=== PATIENT | male | born 1945 | race Caucasian/White ===

== ENCOUNTER 2017-05-08 06:50 | Day surgery (SDC) | payer MEDICARE, BC ==
--- NOTE | 2017-04-24 06:43 | HP ---
PREOPERATIVE HISTORY AND PHYSICAL: DATE OF ADMISSION: 05/08/17 CHIEF COMPLAINT: Right hand numbness and tingling. HISTORY OF PRESENT ILLNESS: Po is a very pleasant 71-year-old man who complains of numbness and tingling in his right hand for the past 4 to 6 months. He does not recall any specific injury. It is gradually getting worse. He rates his symptoms as 5 out of 10. He notices dropping things, trouble pinching and gripping. These symptoms awaken him at night. He is right handed, feels similar symptoms on the left, but not as bad. The patient had a nerve conduction study which was consistent with severe right carpal tunnel syndrome, moderate left carpal tunnel syndrome. He presents for right carpal tunnel release. PAST MEDICAL HISTORY: Significant for: 1. Hypertension. 2. Reflux. 3. Hypercholesterolemia. 4. Arthritis. 5. Diverticulitis. PAST SURGICAL HISTORY: Left knee arthroscopy, hernia repair and ankle surgery. MEDICATIONS: 1. Aspirin 81 mg p.o. daily. 2. Pravachol 80 mg p.o. q.h.s. 3. Escitalopram oxalate 10 mg p.o. daily. 4. Multivitamin 1 p.o. daily. 5. Metamucil 1 tablespoon daily. 6. Nexium 40 mg p.o. daily. 7. Amlodipine besylate 10 mg 1 tablet p.o. daily. 8. Lisinopril 40 mg p.o. daily. 9. Shelbie 60 mg p.o. p.r.n. DRUG ALLERGIES: No known drug allergies. FAMILY HISTORY: Heart disease and stroke. 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 He is a former smoker. Has 4 alcoholic beverages daily. Exercises occasionally. He lives with his . REVIEW OF SYSTEMS: General: Negative. Cephalic: Negative. Cardiovascular: Positive for hypertension and high cholesterol. Respiratory: Positive for seasonal allergies. GI: Positive for history of diverticulitis, currently not active. : Negative. Endocrine: Negative. Skin: Negative. Musculoskeletal: Otherwise negative. Neurologic: Negative. Hematologic: Negative. PHYSICAL EXAMINATION VITAL SIGNS: He is 70.5 inches, weight is 229 pounds. Blood pressure 128/66, pulse 92. HEENT: Exam is unremarkable. His eye movements are concentric. NECK: He has good range of motion of his neck without pain. No masses are palpated. LUNGS: His lungs are clear to auscultation. Good inspiratory effort, no wheezing. CARDIAC: Regular rate and rhythm without murmur. Peripheral vascular: He has palpable pulses. No peripheral edema. EXTREMITIES: He has positive Phalen's test and Tinel sign of the right median nerve at the wrist. Good strength with abduction of his fingers. Decreased strength with thumb abduction. NEUROLOGICAL: He is alert and oriented without focal deficits. IMPRESSION: Right carpal tunnel syndrome. PLAN: Plan is for right carpal tunnel release. The patient will follow up here 10 to 14 days postop. [id number] #: [id number] MTDD
[~2017-05-08 06:50] MED LIST: Buffered Lidocaine 0.9% SYRIN* 5 ML/SYR SYRINGE INTRADERM ONE
[2017-05-08] MEDS ORDERED: Lidocaine 1% INJ* 10 MG/ML 30 ML SDV ONE (07:13)
[2017-05-08] MEDS ORDERED: fentaNYL* 50 MCG/ML 2 ML VIAL (100 MCG VIAL) ONE (08:16)
[2017-05-08] MEDS ORDERED: Midazolam* 1 MG/ML 2 ML VIAL (2 MG) ONE (08:17)
[2017-05-08] MEDS ORDERED: Propofol* 10 MG/ML 20 ML BTL IV PUSH ONE (08:17)
[2017-05-08] MEDS ORDERED: Lidocaine 2% PF * 5 ML VIAL ONE (08:17)
[2017-05-08 09:11] VITALS: BP 136/72
--- NOTE | 2017-05-08 22:06 | OP ---
DATE OF OPERATION: 05/08/17 [facility] DATE OF : 49 SURGEON: Frances Martines MD. CCTV TECHNICIAN: LEEANNE Hamm. ANESTHESIOLOGIST: Faustino Beebe DO ANESTHESIA: Local MAC. PRE-OP DIAGNOSIS: Right carpal tunnel syndrome. POST-OP DIAGNOSIS: Right carpal tunnel syndrome. OPERATIVE PROCEDURE: Right carpal tunnel release. ESTIMATED BLOOD LOSS: Zero. TOURNIQUET TIME: Five minutes. INDICATION FOR PROCEDURE: Po is a 71-year-man with numbness and tingling in the median nerve distribution of his right hand. He presents for right carpal tunnel release. DESCRIPTION OF PROCEDURE: The patient was brought to the operating room, was given a sedation anesthetic and a local infiltration of 10 cc of 1% plain lidocaine in the palm of his right hand. The skin of his right hand and forearm was prepped and draped in the usual sterile fashion. The hand and forearm were exsanguinated and the tourniquet elevated to 250 mmHg. A longitudinal incision was made in the palm in line with the ring finger, dissected through the subcutaneous tissue down to the transverse carpal ligament. The ligament was divided sharply with a knife and then more proximally with the scissors. The nerve was dissected free from the surrounding tissue and there was an area of moderate compression at the mid portion of the ligament. The wound was irrigated and the skin edges reapproximated with 4- 0 nylon suture. The wound was dressed with Xeroform, 4x4 , Webril and an KRISTINE wrap. The patient tolerated the procedure well and was brought to the recovery room in good condition. [id number]/[id number] #: [id number] DEMARIO
== END 2017-05-08 09:08 | disposition home or self-care (01) ==
LOC: OREAST 06:50
PROVIDERS: ATTEND Orthopaedic Surgery
DX: G56.01 Carpal tunnel syndrome, right upper limb (principal); I10 Essential (primary) hypertension; E78.00 Pure hypercholesterolemia, unspecified; Z87.891 Personal history of nicotine dependence
CPT/HCPCS: J2001; J2250; J2704; J3010

== ENCOUNTER 2018-04-19 16:08 | Emergency (ER) | payer MEDICARE, BC ==
--- OUTSIDE RECORDS SUMMARY | 2018-04-19 16:26 | XMS REPORT ---
:1945 External Reference #:[id number] Author Organization [facility] Address [facility] [place] [address] [place] [address] Phone [phone] Care Team Providers Name Role Phone Mari Mcneal MD Primary Care Physician Unavailable Payers Type Date Identification Numbers Payment Provider Subscriber Medicare Primary Policy Number: [id number] Medicare Po Flores PayID: [id number] [address] [place] [address] Medigap Part B Effective: 2012 Policy Number: Medicare Po Flores [id number] Expires: 2018 PayID: [id number] [address] [place] [address] Medigap Part B Effective: 2012 Policy Number: Facets Po Flores [id number] PayID: [id number] [address] [address] [facility] Effective: 2010 Policy Number: [facility] [id number] Expires: 2012 Group Number: [id number] PO Box Group Name: Claudinejimmy GoldsmithHECTOR martinez [id number] PayID: [id number] Problems Date Description Provider Status Onset: 06/03/2010 Benign essential hypertension Mari Mcneal M.D. Active Onset: 06/03/2010 Gastroesophageal reflux disease Mari Mcneal M.D. Active Onset: 05/10/2014 Liver enzymes abnormal Mari Mcneal M.D. Active Onset: 06/11/2015 Essential hypertension Mari Mcneal M.D. Active Onset: 03/05/2018 Localized, primary osteoarthritis Brandie Jacobo M.D. 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 nostril twice daily Aspirin 12/19/ Active Tablets 81mg 1 by 2016 mouth Cotton, every M.D. day Pravachol 10/21/ Active Tablets 80mg 90tab Take 1 2013 s Tablet Cotton, By Mouth M.D. AT Bedtime Escitalopram 04/19/ Active Tablets 10mg 90tab Take 1 F41.9 Oxalate 2011 s Tablet Cotton, By Mouth M.D. Every Day Multivitamins 03/06/ Active Capsules QS 1 2010 capsule Cotton, brooke;y M.D. Metamucil 03/06/ Active Powder 1 tbsp 2010 daily Cotton, M.D. Nexium 01/01/ Active Capsules DR 40mg 90cap take one K21.9 2009 s capsule Cotton, by mouth M.D. once daily Amlodipine 01/01/ Active Tablets 10mg 90tab Take 1 Mari Besylate 2009 s Tablet Cotton, By Mouth M.D. Every Day Lisinopril 01/01/ Active Tablets 40mg 90tab Take 1 Mari 2009 s Tablet Cotton, By Mouth M.D. Every Day Meloxicam 03/05/ Hx Tablets 15mg 30tab 1 by M25.462 Brandie 2017 - s mouth Donnell, 04/08/ every M.D. 2018 day Tramadol 04/23/ Hx Tablets 37.5-325m 10tab 1 Frances Hydrochloride/Lito 2017 - g s tablets Martines, taminophen 06/03/ every 6 M.D. 2017 hours as needed pain Meclizine HCL 11/27/ Hx Tablets 25mg 30tab 1 tablet 386.11 Arlyn 2014 - s every 8 Varn, N.P. 06/11/ hours as 2015 needed for vertigo Clotrimazole/Beta 11/27/ Hx Cream 1-0.05% 15gm apply 2 110.5 Arlyn methasone 2014 - - 3 Varn, N.P. Dipropionate 06/20/ times 2016 daily as needed Mupirocin 11/27/ Hx Ointment 2% 22gm apply 110.5 Arlyn 2015 - once Varn, N.P. 06/20/ daily to 2016 rash Cyclobenzaprine 07/11/ Hx Tablets 10mg 30tab take 1 M54.89 Mari HCL 2013 - s tablet Cotton, 12/19/ by mouth M.D. 2016 three times daily as needed for spasm Naproxen 07/11/ Hx Tablets 500mg 30tab take 1 M54.89 Mari 2013 - s tablet Cotton, 12/19/ by mouth M.D. 2016 two times daily with food as needed for pain, avoid taking it daily Trazodone HCL 09/16/ Hx Tablets 50mg 30tab 1 tablet Mari 2013 - s once Cotton, 12/19/ daily at M.D. 2017 bedtime as needed Triamcinolone 10/18/ Hx Cream 0.5% 15gm apply Mari Acetonide 2012 - thin Cotton, 06/20/ film M.D. 2016 twice daily as needed Trazodone HCL 03/05/ Hx Tablets 50mg 30tab /2-1 300.00 Mari 2011 tablet Elliott, 10/18/ once M.D. 2012 daily at bedtime Fluticasone 10/13/ Hx Suspension 50mcg/Act 1unit 2 sprays 388.30 Mari Propionate 2011 - each Elliott, 11/12/ nostril M.D. 2011 daily Tramadol HCL 08/05/ Hx Tablets 50mg 40tab 1-2 724.5 Mari 2011 tablets Elliott, 11/09/ every 6 M.D. 2015 hours as needed Fiber 7 03/06/ Hx Powder 1 tsp Mari 2010 - daily Elliott, 06/14/ M.D. 2012 Ketoconazole 03/06/ Hx Cream 2% 30gm apply 782.1 Mari 2010 - thin Elliott, 06/20/ film M.D. 2015 twice daily Aspirin 01/01/ Hx Chewtabs 81mg 1 tablet [facility] 2009 - once Elliott, 04/19/ daily M.D. 2011 Lisinopril 12/27/ Hx Tablets 5mg 30tab 1 tablet Lamar 2009 once Sarai, 01/01/ daily M.D. 2009 Amlodipine 12/27/ Hx Tablets 2.5mg 90tab 1 tablet Lamar Besylate 2009 once Sarai, 01/01/ daily M.D. 2009 Prevacid 12/27/ Hx Capsules DR 30mg 60cap 1 tablet 530.81 Lamar 2009 once Sarai, 01/01/ daily M.D. 2009 Fexofenadine HCL 12/27/ Hx Tablets 60mg 180ta Take One Mari2009 Tablet Elliott, 10/13/ By Mouth M.D. 2011 Twice Daily as Needed Buspirone HCL 12/27/ Hx Tablets 15mg 60tab Take One Mari 2009 - Tablet Elliott, 04/19/ By Mouth M.D. 2011 Twice A Day Pravastatin 12/27/ Hx Tablets 80mg 90tab Take One Mari Sodium 2009 Tablet Elliott, 10/21/ By Mouth M.D. 2013 AT Bedtime. Shelbie Allergy / Hx Tablets 60mg bid prn Unknown 0000 - po 2017 Augmentin / Hx Tablets 875-125mg one by Unknown 0000 - mouth 12/19/ every 12 2017 hours for 7 days Magnesium Citrate / Hx Unknown 0000 - 2017 Medications Administered in Office Medication Date Status Form Strength Qnty SIG Indications Ordering Provider Depomedrol Administered Injection Brandie 40MG 018 Charlie Jacobo Depomedrol Administered Injection Brandie 40MG 018 Charlie Jacobo Immunizations CPT Code Status Date Vaccine Lot # [id number] Given 04/19/2018 Influenza Virus Vaccine, Quadrivalent, Split, [id number] Preservative Free 71326 Given 07/16/2017 Pneumonia Vaccine [id number] 63151 Given 05/18/2017 Influenza Virus Vaccine, Quadrivalent, Split, [id number] Preservative Free 25591 Given 05/07/2016 Influenza Virus Vaccine, Quadrivalent, Split [id number] Virus, Im Use 66087 Given 05/11/2015 Influenza Virus Vaccine, Quadrivalent, Split, [id number] Preservative Free 58306 Given 11/09/2014 Pneumococcal Conjugate Vaccine 13 Valent For [id number] Intramuscular Use 05041 Given 05/10/2014 Influenza Virus Vaccine, Quadrivalent, Split, [id number] Preservative Free [id number] Given 04/19/2012 Fluzone Vaccine [id number] 40263 Given 06/03/2010 Pneumonia Vaccine 31715 Given 04/03/2009 Zoster (Zostavax) 26345 Given 12/21/2006 Tdap - Tetanus/Diptheria/Acellular Pertussis [id number] 96349 Given 12/21/2006 Tdap - Tetanus/Diptheria/Acellular Pertussis 42336 Given 12/21/2006 Tdap - Tetanus/Diptheria/Acellular Pertussis 09872 Given 06/17/2006 Influenza Virus 3Yrs & Over Vital Signs Date Vital Result Comment 04/19/2018 Height 70 inches 5'10" Weight 223.00 lb Heart Rate 79 /min BP Systolic 108 mmHg BP Diastolic 59 mmHg BP Systolic Sitting 120 mmHg BP Diastolic Sitting 60 mmHg BP Systolic Standing 118 mmHg BP Diastolic Standing 60 mmHg BP Systolic Lying Down 118 mmHg BP Diastolic Lying Down 64 mmHg O2 % BldC Oximetry 97 % BMI (Body Mass Index) 32.0 kg/m2 04/09/2018 Height 70 inches 5'10" Weight 227.00 lb Heart Rate 74 /min Respiratory Rate 16 /min Pain Level 2 BMI (Body Mass Index) 32.6 kg/m2 03/05/2018 Height 70 inches 5'10" Weight 227.00 lb BP Systolic 120 mmHg BP Diastolic 61 mmHg Respiratory Rate 16 /min Pain Level 7 BMI (Body Mass Index) 32.6 kg/m2 01/14/2018 Weight 227.00 lb Heart Rate 92 /min BP Systolic 128 mmHg BP Diastolic 72 mmHg Body Temperature 97.0 F O2 % BldC Oximetry 96 % 07/16/2017 Height 70.5 inches 5'10.50" Weight 232.75 lb Heart Rate 94 /min BP Systolic 120 mmHg BP Diastolic 60 mmHg Body Temperature 95.9 F O2 % BldC Oximetry 93 % BMI (Body Mass Index) 32.9 kg/m2 07/15/2017 Height 70.5 inches 5'10.50" Weight 229.00 lb BP Systolic 124 mmHg BP Diastolic 60 mmHg Respiratory Rate 18 /min Body Temperature 96.6 F Pain Level 0 BMI (Body Mass Index) 32.4 kg/m2 06/10/2017 Height 70.5 inches 5'10.50" Weight 229.00 lb Heart Rate 86 /min BP Systolic 136 mmHg BP Diastolic 64 mmHg Body Temperature 96.9 F BMI (Body Mass Index) 32.4 kg/m2 05/18/2017 Height 70.5 inches 5'10.50" Weight 229.00 lb Heart Rate 68 /min BP Systolic 134 mmHg BP Diastolic 68 mmHg Body Temperature 96.8 F Pain Level 2 BMI (Body Mass Index) 32.4 kg/m2 04/23/2017 Height 70.5 inches 5'10.50" Weight 229.00 lb Heart Rate 92 /min BP Systolic 128 mmHg BP Diastolic 66 mmHg Respiratory Rate 20 /min Body Temperature 97.4 F Pain Level 0 BMI (Body Mass Index) 32.4 kg/m2 03/30/2017 Height 70.5 inches 5'10.50" Weight 221.00 lb BP Systolic 144 mmHg BP Diastolic 68 mmHg Body Temperature 97.4 F BMI (Body Mass Index) 31.3 kg/m2 03/12/2017 Height 70.5 inches 5'10.50" Weight 231.00 lb BP Systolic 121 mmHg BP Diastolic 62 mmHg Respiratory Rate 14 /min Pain Level 4 BMI (Body Mass Index) 32.7 kg/m2 03/04/2017 Height 70.5 inches 5'10.50" Weight 231.00 lb Heart Rate 81 /min BP Systolic 127 mmHg BP Diastolic 60 mmHg Body Temperature 97.1 F BMI (Body Mass Index) 32.7 kg/m2 12/19/2016 Weight 232.00 lb Heart Rate 88 /min BP Systolic 148 mmHg BP Diastolic 66 mmHg Body Temperature 97.2 F O2 % BldC Oximetry 97 % 06/20/2016 Height 69.5 inches 5'9.50" Weight 234.00 lb Heart Rate 78 /min BP Systolic 128 mmHg BP Diastolic 74 mmHg Body Temperature 98.1 F O2 % BldC Oximetry 97 % BMI (Body Mass Index) 34.1 kg/m2 01/22/2016 Weight 222.00 lb Heart Rate 94 /min BP Systolic Sitting 128 mmHg BP Diastolic Sitting 84 mmHg Respiratory Rate 15 /min Body Temperature 98.0 F O2 % BldC Oximetry 98 % 12/10/2015 Weight 231.00 lb Heart Rate 85 /min BP Systolic 138 mmHg BP Diastolic 72 mmHg BP Systolic Sitting 113 mmHg BP Diastolic Sitting 63 mmHg Body Temperature 97.2 F O2 % BldC Oximetry 97 % 06/11/2015 Height 70 inches 5'10" Weight 230.00 lb Heart Rate 88 /min BP Systolic Sitting 126 mmHg BP Diastolic Sitting 74 mmHg Respiratory Rate 15 /min Body Temperature 98.7 F O2 % BldC Oximetry 98 % BMI (Body Mass Index) 33.0 kg/m2 11/27/2014 Weight 232.00 lb Heart Rate 99 /min BP Systolic Sitting 132 mmHg BP Diastolic Sitting 70 mmHg BP Systolic Standing 134 mmHg BP Diastolic Standing 63 mmHg BP Systolic Lying Down 108 mmHg BP Diastolic Lying Down 59 mmHg Body Temperature 98.1 F 11/09/2014 Weight 229.00 lb Heart Rate 90 /min BP Systolic Sitting 138 mmHg BP Diastolic Sitting 66 mmHg Body Temperature 96.5 F 09/20/2014 Height 70 inches 5'10" Weight 224.00 lb Heart Rate 90 /min BP Systolic 146 mmHg BP Diastolic 71 mmHg BMI (Body Mass Index) 32.1 kg/m2 07/11/2014 Height 70 inches 5'10" Weight 227.50 lb Heart Rate 88 /min BP Systolic Sitting 132 mmHg BP Diastolic Sitting 60 mmHg Body Temperature 97.9 F O2 % BldC Oximetry 95 % BMI (Body Mass Index) 32.6 kg/m2 05/10/2014 Height 70 inches 5'10" Weight 223.00 lb Heart Rate 82 /min BP Systolic Sitting 152 mmHg BP Diastolic Sitting 68 mmHg Body Temperature 97.2 F BMI (Body Mass Index) 32.0 kg/m2 09/16/2013 Weight 224.00 lb Heart Rate 84 /min BP Systolic Sitting 138 mmHg BP Diastolic Sitting 84 mmHg 06/14/2013 Weight 223.00 lb Heart Rate 86 /min BP Systolic Sitting 136 mmHg BP Diastolic Sitting 62 mmHg 03/15/2013 Height 70 inches 5'10" Weight 221.00 lb Heart Rate 84 /min BP Systolic Sitting 138 mmHg BP Diastolic Sitting 72 mmHg BMI (Body Mass Index) 31.7 kg/m2 10/18/2012 Height 70 inches 5'10" Weight 207.00 lb Heart Rate 86 /min BP Systolic Sitting 120 mmHg BP Diastolic Sitting 68 mmHg BMI (Body Mass Index) 29.7 kg/m2 05/20/2012 Height 70 inches 5'10" Weight 214.00 lb Heart Rate 80 /min BP Systolic Sitting 122 mmHg BP Diastolic Sitting 64 mmHg BMI (Body Mass Index) 30.7 kg/m2 04/19/2012 Height 70 inches 5'10" Weight 210.00 lb Heart Rate 76 /min BP Systolic Sitting 124 mmHg BP Diastolic Sitting 72 mmHg BMI (Body Mass Index) 30.1 kg/m2 03/09/2012 Height 70 inches 5'10" Weight 210.00 lb Heart Rate 80 /min BP Systolic Sitting 130 mmHg BP Diastolic Sitting 80 mmHg BMI (Body Mass Index) 30.1 kg/m2 03/05/2012 Height 70 inches 5'10" Weight 214.00 lb Heart Rate 78 /min BP Systolic Sitting 138 mmHg BP Diastolic Sitting 80 mmHg BMI (Body Mass Index) 30.7 kg/m2 10/14/2011 Height 70 inches 5'10" Weight 216.25 lb Heart Rate 76 /min BP Systolic Sitting 130 mmHg BP Diastolic Sitting 70 mmHg Body Temperature 98.6 F BMI (Body Mass Index) 31.0 kg/m2 09/08/2011 Height 70 inches 5'10" Weight 220.00 lb Heart Rate 80 /min BP Systolic Sitting 133 mmHg BP Diastolic Sitting 68 mmHg BMI (Body Mass Index) 31.6 kg/m2 08/05/2011 Height 70 inches 5'10" Weight 218.00 lb Heart Rate 104 /min BP Systolic Sitting 168 mmHg BP Diastolic Sitting 64 mmHg BMI (Body Mass Index) 31.3 kg/m2 07/04/2011 Height 70 inches 5'10" Weight 219.00 lb Heart Rate 84 /min BP Systolic Sitting 140 mmHg BP Diastolic Sitting 68 mmHg BMI (Body Mass Index) 31.4 kg/m2 03/06/2011 Height 70 inches 5'10" Weight 213.00 lb Heart Rate 78 /min BP Systolic Sitting 136 mmHg BP Diastolic Sitting 82 mmHg BMI (Body Mass Index) 30.6 kg/m2 02/11/2011 Height 70 inches 5'10" Weight 210.00 lb Heart Rate 74 /min BP Systolic Sitting 132 mmHg BP Diastolic Sitting 84 mmHg BMI (Body Mass Index) 30.1 kg/m2 08/29/2010 Weight 217.00 lb Heart Rate 86 /min BP Systolic 128 mmHg BP Diastolic 70 mmHg 07/01/2010 Weight 213.00 lb Heart Rate 90 /min BP Systolic 146 mmHg BP Diastolic 82 mmHg 06/03/2010 Weight 215.00 lb Heart Rate 88 /min BP Systolic 142 mmHg BP Diastolic 70 mmHg 01/01/2010 Weight 210.25 lb Heart Rate 72 /min BP Systolic 130 mmHg BP Diastolic 80 mmHg Results Test Date Test Result H/L Range Note Comp Metabolic Panel 01/11/2018 Sodium 137 mmol/L Low 139-145 Potassium 4.1 mmol/L 3.5-5.0 Chloride 102 mmol/L 101-111 Co2 Carbon Dioxide 26 mmol/L 22-32 Anion Gap 9 mmol/L 2-11 Glucose 112 mg/dL High 70-100 Blood Urea Nitrogen 15 mg/dL 6-24 Creatinine 1.09 mg/dL 0.67-1.17 BUN/Creatinine Ratio 13.8 8-20 Calcium 9.5 mg/dL 8.6-10.3 Total Protein 7.2 g/dL 6.4-8.9 Albumin 4.5 g/dL 3.2-5.2 Globulin 2.7 g/dL 2-4 Albumin/Globulin Ratio 1.7 1-3 Total Bilirubin 0.90 mg/dL 0.2-1.0 Alkaline Phosphatase 92 U/L 34-104 Alt 62 U/L High 7-52 Ast 38 U/L 13-39 Egfr Non- 66.9 >60 Egfr 86.0 >60 1 Lipid Profile (Trig/Chol/HDL) 07/13/2017 Triglycerides 209 mg/dL 2 Cholesterol 234 mg/dL 3 HDL Cholesterol 57.9 mg/dL 4 LDL Cholesterol 134 mg/dL 5 Comp Metabolic Panel 07/13/2017 Sodium 140 mmol/L 133-145 Potassium 4.7 mmol/L 3.5-5.0 Chloride 103 mmol/L 101-111 Co2 Carbon Dioxide 30 mmol/L 22-32 Anion Gap 7 mmol/L 2-11 Glucose 104 mg/dL High 70-100 Blood Urea Nitrogen 15 mg/dL 6-24 Creatinine 1.02 mg/dL 0.67-1.17 BUN/Creatinine Ratio 14.7 8-20 Calcium 9.7 mg/dL 8.6-10.3 Total Protein 7.1 g/dL 6.4-8.9 Albumin 4.6 g/dL 3.2-5.2 Globulin 2.5 g/dL 2-4 Albumin/Globulin Ratio 1.8 1-3 Total Bilirubin 0.60 mg/dL 0.2-1.0 Alkaline Phosphatase 117 U/L High 34-104 Alt 111 U/L High 7-52 Ast 70 U/L High 13-39 Egfr Non- 72.4 >60 Egfr 93.1 >60 6 Comp Metabolic Panel 12/12/2016 Sodium 137 mmol/L 133-145 Potassium 4.5 mmol/L 3.5-5.0 Chloride 102 mmol/L 101-111 Co2 Carbon Dioxide 29 mmol/L 22-32 Anion Gap 6 mmol/L 2-11 Glucose 114 mg/dL High 70-100 Blood Urea Nitrogen 15 mg/dL 6-24 Creatinine 1.06 mg/dL 0.67-1.17 BUN/Creatinine Ratio 14.2 8-20 Calcium 9.2 mg/dL 8.6-10.3 Total Protein 7.1 g/dL 6.4-8.9 Albumin 4.2 g/dL 3.2-5.2 Globulin 2.9 g/dL 2-4 Albumin/Globulin Ratio 1.4 1-3 Total Bilirubin 0.60 mg/dL 0.2-1.0 Alkaline Phosphatase 104 U/L 34-104 Alt 60 U/L High 7-52 Ast 34 U/L 13-39 Egfr Non- 69.3 >60 Egfr 89.1 >60 7 Laboratory test finding 12/12/2016 Ferritin 166.6 ng/mL 24-336 8 PSA Diagnostic 0.476 ng/mL 0-4.000 9 Lipid Profile (Trig/Chol/HDL) 06/18/2016 Triglycerides 208 mg/dL 10, 11 Cholesterol 189 mg/dL 10, 12 HDL Cholesterol 51.7 mg/dL 10, 13 LDL Cholesterol 96 mg/dL 10, 14 Comp Metabolic Panel 06/18/2016 Sodium 137 mmol/L 133-145 10 Potassium 4.1 mmol/L 3.5-5.0 10 Chloride 102 mmol/L 101-111 10 Co2 Carbon Dioxide 28 mmol/L 22-32 10 Anion Gap 7 mmol/L 2-11 10 Glucose 97 mg/dL 70-100 10 Blood Urea Nitrogen 11 mg/dL 6-24 10 Creatinine 0.96 mg/dL 0.67-1.17 10 BUN/Creatinine Ratio 11.5 8-20 10 Calcium 9.0 mg/dL 8.6-10.3 10 Total Protein 7.1 g/dL 6.4-8.9 10 Albumin 4.1 g/dL 3.2-5.2 10 Globulin 3.0 g/dL 2-4 10 Albumin/Globulin Ratio 1.4 1-3 10 Total Bilirubin 0.60 mg/dL 0.2-1.0 10 Alkaline Phosphatase 93 U/L 34-104 10 Alt 84 U/L High 7-52 10 Ast 50 U/L High 13-39 10 Egfr Non- 77.9 >60 10 Egfr 100.2 >60 10, 15 Urinalysis Profile 02/01/2016 Urine Color Yellow Urine Appearance Clear Urine Specific [place] 1.013 1.010-1.030 Urine pH 7.0 5-9 Urine Urobilinogen Negative Negative Urine Ketones Negative Negative Urine Protein Negative Negative Urine Leukocytes Negative Negative Urine Blood Negative Negative Urine Nitrite Negative Negative Urine Bilirubin Negative Negative Urine Glucose Negative Negative Laboratory test finding 12/03/2015 Alt (SGPT) 54 U/L High 7-52 Ast (Sgot) 32 U/L 13-39 Magnesium 2.0 mg/dL 1.9-2.7 Vitamin B12 518 pg/mL 180-914 16 Lipid Profile (Trig/Chol/HDL) 06/06/2015 Triglycerides 209 mg/dL 17, 18 Cholesterol 182 mg/dL 17, 19 HDL Cholesterol 55.2 mg/dL 17, 20 LDL Cholesterol 85 mg/dL 17, 21 Comp Metabolic Panel 06/06/2015 Sodium 136 mmol/L 133-145 17 Potassium 4.3 mmol/L 3.5-5.0 17 Chloride 101 mmol/L 101-111 17 Co2 Carbon Dioxide 27 mmol/L 22-32 17 Anion Gap 8 mmol/L 2-11 17 Glucose 93 mg/dL 70-100 17 Blood Urea Nitrogen 13 mg/dL 6-24 17 Creatinine 1.01 mg/dL 0.67-1.17 17 BUN/Creatinine Ratio 12.9 8-20 17 Calcium 9.3 mg/dL 8.6-10.3 17 Total Protein 7.3 g/dL 6.4-8.9 17 Albumin 4.5 g/dL 3.2-5.2 17 Globulin 2.8 g/dL 2-4 17 Albumin/Globulin Ratio 1.6 1-3 17 Total Bilirubin 0.70 mg/dL 0.2-1.0 17 Alkaline Phosphatase 94 U/L 34-104 17 Alt 71 U/L High 7-52 17 Ast 43 U/L High 13-39 17 Egfr Non- 73.7 >60 17 Egfr 94.8 >60 17, 22 Laboratory test finding 06/06/2015 Ferritin 165.3 ng/mL 24-336 17, 23 Iron & Iron Binding Capacity 06/06/2015 Iron 207 g/dL 50-212 17 Unsaturated Iron Binding 111 g/dL 17 Total Iron Binding Capacity 318 g/dL 250-450 17 % Iron Saturation 65 % High 15-55 17 Comp Metabolic Panel 05/29/2014 Sodium 136 mmol/L 133-145 24 Potassium 4.1 mmol/L 3.7-5.6 24 Chloride 103 mmol/L 101-111 24 Co2 Carbon Dioxide 26 mmol/L 22-32 24 Anion Gap 7 mmol/L 2-11 24 Glucose 100 mg/dL 70-100 24 Blood Urea Nitrogen 11 mg/dL 6-24 24 Creatinine 0.86 mg/dL 0.67-1.17 24 BUN/Creatinine Ratio 12.8 8-20 24 Calcium 9.2 mg/dL 8.6-10.3 24 Total Protein 7.4 g/dL 6.4-8.9 24 Albumin 4.2 g/dL 3.2-5.2 24 Globulin 3.2 g/dL 2-4 24 Albumin/Globulin Ratio 1.3 1-3 24 Total Bilirubin 0.70 mg/dL 0.2-1.0 24 Alkaline Phosphatase 94 U/L 34-104 24 Alt 57 U/L High 7-52 24 Ast 39 U/L 13-39 24 Egfr Non- 89.0 >60 24 Egfr 114.4 >60 24, 25 Lipid Profile (Trig/Chol/HDL) 05/29/2014 Triglycerides 135 mg/dL 24, 26 Cholesterol 172 mg/dL 24, 27 HDL Cholesterol 52.5 mg/dL 24, 28 LDL Cholesterol 93 mg/dL 24, 29 Liver Function Panel 09/13/2013 Total Protein 7.1 g/dL 6.4-8.9 Albumin 4.3 g/dL 3.2-5.2 Globulin 2.8 g/dL 2-4 Albumin/Globulin Ratio 1.5 1-3 Total Bilirubin 0.50 mg/dL 0.2-1.0 Direct Bilirubin 0.10 mg/dL 0.03-0.18 Indirect Bilirubin 0.4 mg/dL 0.3-1.0 Alkaline Phosphatase 106 U/L High 34-104 Alt 51 U/L 7-52 Ast 31 U/L 13-39 Laboratory test finding 09/13/2013 Erythrocyte Sed Rate 32 mm/Hr 0-40 CBC With Manual Diff 09/13/2013 White Blood Count 7.4 10^3/uL 4.8-10.8 Red Blood Count 4.54 10^6/uL 4.0-5.4 Hemoglobin 14.8 g/dL 14.0-18.0 Hematocrit 42 % 42-52 Mean Corpuscular Volume 93 fL 80-94 Mean Corpuscular Hemoglobin 33 pg High 27-31 Mean Corpuscular HGB Conc 35 g/dL 31-36 Red Cell Distribution Width 13 % 10.5-15 Platelet Count 295 10^3/uL 150-450 Mean Platelet Volume 7 um3 Low 7.4-10.4 Abs Neutrophils 4.4 10^3/uL 1.5-7.7 Abs Lymphocytes 1.9 10^3/uL 1.0-4.8 Abs Monocytes 0.9 10^3/uL High 0-0.8 Abs Eosinophils 0.1 10^3/uL 0-0.6 Abs Basophils 0 10^3/uL 0-0.2 Abs Nucleated RBC 0.01 10^3/uL Neutrophil % 61 % 38-83 Band % 1 % 0-8 Lymphocytes % 28 % 25-47 Monocytes % 9 % 0-13 Reactive Lymph % 1 % 0-6 RBC Morphology Normal Normal Laboratory test finding 06/06/2013 Vitamin B12 504 pg/mL 180-914 30 CBC Auto Diff 06/06/2013 White Blood Count 8.2 10^3/uL 4.8-10.8 Red Blood Count 4.45 10^6/uL 4.0-5.4 Hemoglobin 13.9 g/dL Low 14.0-18.0 Hematocrit 42 % 42-52 Mean Corpuscular Volume 95 fL High 80-94 Mean Corpuscular Hemoglobin 31 pg 27-31 Mean Corpuscular HGB Conc 33 g/dL 31-36 Red Cell Distribution Width 13 % 10.5-15 Platelet Count 269 10^3/uL 150-450 Mean Platelet Volume 7 um3 Low 7.4-10.4 Abs Neutrophils 4.8 10^3/uL 1.5-7.7 Abs Lymphocytes 2.2 10^3/uL 1.0-4.8 Abs Monocytes 1.0 10^3/uL High 0-0.8 Abs Eosinophils 0.2 10^3/uL 0-0.6 Abs Basophils 0 10^3/uL 0-0.2 Abs Nucleated RBC 0.01 10^3/uL Granulocyte % 58.5 % 38-83 Lymphocyte % 26.7 % 25-47 Monocyte % 12.2 % High 1-9 Eosinophil % 2.1 % 0-6 Basophil % 0.5 % 0-2 Nucleated Red Blood Cells % 0.1 Laboratory test finding 06/06/2013 GGTP 174 U/L High 7-50 31 Comp Metabolic Panel 06/06/2013 Sodium 136 mmol/L 133-145 Potassium 4.9 mmol/L 3.5-5.0 Chloride 99 mmol/L Low 101-111 Co2 Carbon Dioxide 30.0 mmol/L 22-32 Anion Gap 7.0 mmol/L 2-11 Glucose 105 mg/dL High 70-100 Blood Urea Nitrogen 11 mg/dL 6-24 Creatinine 0.90 mg/dL 0.50-1.40 BUN/Creatinine Ratio 12.2 8-20 Calcium 9.7 mg/dL 8.1-9.9 Total Protein 7.5 g/dL 6.2-8.1 Albumin 4.2 g/dL 3.2-5.2 Globulin 3.3 g/dL 2-4 Albumin/Globulin Ratio 1.3 1-3 Total Bilirubin 0.8 mg/dL 0.4-1.5 Alkaline Phosphatase 102 U/L 30-110 Alt 89 U/L High 14-54 Ast 47 U/L High 12-42 Egfr Non- 84.7 >60 Egfr 108.9 >60 32 Comp Metabolic Panel 01/25/2013 Sodium 138 mmol/L 133-145 Potassium 4.5 mmol/L 3.5-5.0 Chloride 102 mmol/L 101-111 Co2 Carbon Dioxide 27.0 mmol/L 22-32 Anion Gap 9.0 mmol/L 2-11 Glucose 92 mg/dL 70-100 Blood Urea Nitrogen 12 mg/dL 6-24 Creatinine 1.10 mg/dL 0.50-1.40 BUN/Creatinine Ratio 10.9 8-20 Calcium 9.5 mg/dL 8.1-9.9 Total Protein 6.6 g/dL 6.2-8.1 Albumin 4.0 g/dL 3.2-5.2 Globulin 2.6 g/dL 2-4 Albumin/Globulin Ratio 1.5 1-3 Total Bilirubin 1.0 mg/dL 0.4-1.5 Alkaline Phosphatase 91 U/L 30-110 Alt 56 U/L High 14-54 Ast 38 U/L 12-42 Egfr Non- 67.2 >60 Egfr 86.4 >60 33 Lipid Profile (Trig/Chol/HDL) 01/25/2013 Triglycerides 172 mg/dL 40-200 Cholesterol 174 mg/dL Less than 200 HDL Cholesterol 55 mg/dL 40-60 34 Cholesterol/HDL Ratio 3.2 Average 1-4.44 LDL Cholesterol 84.6 Less Than 100 35 Laboratory test finding 01/25/2013 GGTP 137 U/L High 7-50 36 CBC Auto Diff 01/25/2013 White Blood Count 7.0 10^3/uL 4.8-10.8 Red Blood Count 4.31 10^6/uL 4.0-5.4 Hemoglobin 13.8 g/dL Low 14.0-18.0 Hematocrit 41 % Low 42-52 Mean Corpuscular Volume 95 fL High 80-94 Mean Corpuscular Hemoglobin 32 pg High 27-31 Mean Corpuscular HGB Conc 34 g/dL 31-36 Red Cell Distribution Width 13 % 10.5-15 Platelet Count 240 10^3/uL 150-450 Mean Platelet Volume 7 um3 Low 7.4-10.4 Abs Neutrophils 4.2 10^3/uL 1.5-7.7 Abs Lymphocytes 1.9 10^3/uL 1.0-4.8 Abs Monocytes 0.8 10^3/uL 0-0.8 Abs Eosinophils 0.1 10^3/uL 0-0.6 Abs Basophils 0 10^3/uL 0-0.2 Abs Nucleated RBC 0 10^3/uL Granulocyte % 59.4 % 38-83 Lymphocyte % 27.7 % 25-47 Monocyte % 11.3 % High 1-9 Eosinophil % 1.3 % 0-6 Basophil % 0.3 % 0-2 Nucleated Red Blood Cells % 0.1 Liver Function Panel 05/18/2012 Total Protein 6.8 GM/DL 6.2-8.1 Albumin 4.1 GM/DL 3.2-5.2 Globulin 2.7 GM/DL 2-4 Albumin/Globulin Ratio 1.5 1-3 Total Bilirubin 0.9 mg/dL 0.1-1.0 37 Direct Bilirubin 0.1 mg/dL 0.1-0.5 Indirect Bilirubin 0.8 mg/dL 0.3-1.0 Alkaline Phosphatase 92 U/L 30-110 Alt 62 U/L High 14-54 Ast 35 U/L 12-42 Laboratory test finding 05/18/2012 PSA Diagnostic 0.5 NG/ML 0-4.0 38 CBC Auto Diff 04/03/2012 White Blood Count 8.4 CUMM 4.8-10.8 Red Cell Count 4.38 CUMM Low 4.6-6.2 Hemoglobin 14.9 g/dL 14.0-18.0 Hematocrit 41 % Low 42-52 Mean Corpuscular Volume 94 um3 80-94 Mean Corpuscular Hemoglob 34 pg High 27-31 Mean Corpuscular HGB Cone 36 g/dL 32-36 Redcell Distribution WDTH 13 % 10.5-15 Platelet Count 241 CUMM 150-450 Mean Platelet Volume 7.3 um3 Low 7.4-10.4 Gran % 66.1 % 38-83 Lymph % 22.9 % 20-45 Mononuclear % 10.1 % High 1-9 Eosinophil % 0.6 % 0-6 Basophil % 0.3 % 0-2 Abs Lymphs 1.9 1.0-4.8 Abs Mononuclear 0.8 0-0.8 Absolute Neutrophil Count 5.6 1.5-7.7 Abs Eosinophils 0.1 0-0.6 Abs Basophils 0 0-0.2 Comp Metabolic Panel 04/03/2012 Sodium 138 mmol/L 135-145 Potassium 3.6 mmol/L 3.5-5.0 Chloride 105 mmol/L 101-111 Co2 (Carbon Dioxide) 24.0 mmol/L 22-32 Anion Gap 9.0 mmol/L 2-11 39 Glucose 97 mg/dL 70-100 BUN 12 mg/dL 6-24 Creatinine 0.9 mg/dL 0.50-1.40 One Over Creatinine 1.11 BUN/Creatinine Ratio 13.3 8-20 Calcium 9.2 mg/dL 8.1-9.9 Total Protein 7.8 GM/DL 6.2-8.1 Albumin 4.1 GM/DL 3.2-5.2 Globulin 3.7 GM/DL 2-4 Albumin/Globulin Ratio 1.1 1-3 Bilirubin Total 0.7 mg/dL 0.4-1.5 40 Alkaline Phosphatase 100 U/L 39-117 Alt (SGPT) 78 U/L High 17-63 Ast (Sgot) 42 U/L 12-42 eGFR Non- 85.0 > 60 eGFR 109.3 > 60 41 Laboratory test finding 04/03/2012 Magnesium 2.3 mg/dL 1.7-2.6 Lipase 39 U/L 22-51 CPK (Creatine Kinase) 216 U/L High 0-200 CKMB 04/03/2012 CKMB In NG/ML 2.7 NG/ML 0.3-4.0 % CKMB 1 %MB 0-9 42 Laboratory test finding 04/03/2012 Myoglobin 34.70 NG/ML 17.4-105.7 Troponin-I 0 NG/ML 0-0.06 43 BNP Evaluatr 42.0 pg/mL 0-100 Protime 04/03/2012 Inr 0.86 Low 0.88-1.13 44 Protime 10.2 SEC Low 10.3-13.5 45 Laboratory test finding 04/03/2012 PTT (Aptt) 25.9 SEC 25.1-38.5 Laboratory test finding 03/05/2012 Ferritin 310 NG/ML 24-336 Iron & Iron Binding Capacity 03/05/2012 Iron Total 131 g/dL 45-182 Unsaturated Iron Binding 209 g/dL Total Iron Binding Capacity 340 g/dL 250-450 % Iron Saturation 39 % 15-55 Lipid Profile (Trig/Chol/HDL) 03/03/2012 Triglyceride 104 mg/dL 40-200 Cholesterol 186 mg/dL Less Than 200 46 High Density Lipoprotein 66 mg/dL High 40-60 47 Cholesterol/HDL Ratio 2.82 AVERAGE 1-4.97 Low Density Lipoprotein 99 mg/dL Less Than 100 48 Comp Metabolic Panel 03/03/2012 Sodium 138 mmol/L 135-145 Potassium 4.4 mmol/L 3.5-5.0 Chloride 102 mmol/L 101-111 Co2 (Carbon Dioxide) 28.0 mmol/L 22-32 Anion Gap 8.0 mmol/L 2-11 49 Glucose 99 mg/dL 70-100 BUN 13 mg/dL 6-24 Creatinine 1.0 mg/dL 0.50-1.40 One Over Creatinine 1.00 BUN/Creatinine Ratio 13.0 8-20 Calcium 9.3 mg/dL 8.1-9.9 Total Protein 6.9 GM/DL 6.2-8.1 Albumin 4.0 GM/DL 3.2-5.2 Globulin 2.9 GM/DL 2-4 Albumin/Globulin Ratio 1.4 1-3 Bilirubin Total 0.8 mg/dL 0.4-1.5 50 Alkaline Phosphatase 107 U/L 39-117 Alt (SGPT) 108 U/L High 17-63 Ast (Sgot) 63 U/L High 12-42 eGFR Non- 75.2 > 60 eGFR 96.7 > 60 51 Iron & Iron Binding Capacity 03/03/2012 Iron Total 126 g/dL 45-182 Unsaturated Iron Binding 186 g/dL Total Iron Binding Capacity 312 g/dL 250-450 % Iron Saturation 40 % 15-55 Laboratory test finding 03/03/2012 Ferritin 349 NG/ML High 24-336 Laboratory test finding 03/03/2012 BUN 16 mg/dL 6-24 Creatinine 03/03/2012 Creatinine 1.0 mg/dL 0.50-1.40 One Over Creatinine 1.00 eGFR Non- 75.2 > 60 eGFR 96.7 > 60 52 Liver Function Panel 12/12/2011 Total Protein 6.8 GM/DL 6.2-8.1 Albumin 3.9 GM/DL 3.2-5.2 Globulin 2.9 GM/DL 2-4 Albumin/Globulin Ratio 1.3 1-3 Bilirubin Total 0.8 mg/dL 0.4-1.5 53 Bilirubin Direct 0.2 mg/dL 0.1-0.5 Indirect Bilirubin 0.6 mg/dL 0.3-1.0 54 Alkaline Phosphatase 93 U/L 39-117 Alt (SGPT) 62 U/L 17-63 Ast (Sgot) 37 U/L 12- Liver Function Panel 09/03/2011 Total Protein 7.1 GM/DL 6.2-8.1 Albumin 4.1 GM/DL 3.2-5.2 Globulin 3.0 GM/DL 2-4 Albumin/Globulin Ratio 1.4 1-3 Bilirubin Total 0.8 mg/dL 0.4-1.5 55 Bilirubin Direct 0.1 mg/dL 0.1-0.5 Indirect Bilirubin 0.7 mg/dL 0.3-1.0 56 Alkaline Phosphatase 107 U/L 39-117 Alt (SGPT) 67 U/L High 17-63 Ast (Sgot) 40 U/L - Urinalysis W/Microscopic 04/14/2011 Ua Color YELLOW Yellow Appearance-Urine CLEAR Clear Specific [place]-Ur 1.011 1.010-1.030 Esterase-Urine NEGATIVE Negative Nitrite NEGATIVE Negative [id number]-Le-[id number] NEGATIVE Negative Protein-Urine NEGATIVE Negative PH-Urine 6.5 5-9 Blood-Urine NEGATIVE Negative Ketones-Urine NEGATIVE Negative Bilirubin-Ur NEGATIVE Negative Glucose-Urine NEGATIVE Negative WBC-Urine 0-2 0-5 RBC-Urine 0-2 0-2 Laboratory test finding 04/14/2011 Hepatitis C Antibody Nonreactive Nonreactive Hepatitis B Surface Ag Nonreactive Nonreactive Hepatitis B Surface AB 04/14/2011 Hepatitis B Surface AB Nonreactive Nonreactive Hbsab Index 0.57 57 Laboratory test finding 04/14/2011 Hepatitis B Core AB, Total Negative Negative 58 Liver Function Panel 04/14/2011 Total Protein 6.8 GM/DL 6.2-8.1 Albumin 4.1 GM/DL 3.2-5.2 Globulin 2.7 GM/DL 2-4 Albumin/Globulin Ratio 1.5 1-3 Bilirubin Total 1.0 mg/dL 0.4-1.5 59 Bilirubin Direct 0.2 mg/dL 0.1-0.5 Indirect Bilirubin 0.8 mg/dL 0.3-1.0 60 Alkaline Phosphatase 112 U/L 39-117 Alt (SGPT) 79 U/L High 17-63 Ast (Sgot) 44 U/L High 12-42 Laboratory test finding 03/03/2011 PSA Screening 0.38 NG/ML 0-4 61 Comp Metabolic Panel 03/03/2011 Sodium 139 mmol/L 135-145 Potassium 5.0 mmol/L 3.5-5.0 Chloride 103 mmol/L 101-111 Co2 (Carbon Dioxide) 28.0 mmol/L 22-32 Anion Gap 8.0 mmol/L 2-11 62 Glucose 98 mg/dL 70-100 BUN 12 mg/dL 6-24 Creatinine 1.00 mg/dL 0.50-1.40 One Over Creatinine 1.00 BUN/Creatinine Ratio 12.0 8-20 Calcium 9.3 mg/dL 8.1-9.9 Total Protein 6.9 GM/DL 6.2-8.1 Albumin 3.9 GM/DL 3.2-5.2 Globulin 3.0 GM/DL 2-4 Albumin/Globulin Ratio 1.3 1-3 Bilirubin Total 0.7 mg/dL 0.4-1.5 63 Alkaline Phosphatase 98 U/L 39-117 Alt (SGPT) 66 U/L High 17-63 Ast (Sgot) 32 U/L 12-42 eGFR Non- 75.5 > 60 eGFR 97.1 > 60 64 Lipid Profile (Trig/Chol/HDL) 03/03/2011 Triglyceride 169 mg/dL 40-200 Cholesterol 160 mg/dL Less Than 200 65 High Density Lipoprotein 46 mg/dL 40-60 66 Cholesterol/HDL Ratio 3.48 AVERAGE 1-4.97 Low Density Lipoprotein 80 mg/dL Less Than 100 67 Laboratory test finding 07/15/2010 C Reactive Protein 0.8 mg/dL High Less Than 0.5 CBC With Electronic Diff 07/15/2010 White Blood Count 8.4 CUMM 4.8-10.8 Red Cell Count 4.57 CUMM Low 4.6-6.2 Hemoglobin 15.0 g/dL 14.0-18.0 Hematocrit 43 % 42-52 Mean Corpuscular Volume 94 um3 80-94 Mean Corpuscular Hemoglob 33 pg High 27-31 Mean Corpuscular HGB Cone 35 g/dL 32-36 Redcell Distribution WDTH 13 % 10.5-15 Platelet Count 286 CUMM 150-450 Mean Platelet Volume 6.7 um3 Low 7.4-10.4 Gran % 63.9 % 38-83 Lymph % 25.3 % 25-47 Mononuclear % 9.5 % High 1-9 Eosinophil % 0.9 % 0-6 Basophil % 0.4 % 0-2 Abs Lymphs 2.1 1.0-4.8 Abs Mononuclear 0.8 0-0.8 Absolute Neutrophil Count 5.3 1.5-7.7 Abs Eosinophils 0.1 0-0.6 Abs Basophils 0 0-0.2 Laboratory test 07/15/2010 Erythrocyte Sed Rate 21 MM/HR High 0-20 finding Laboratory test 06/17/2010 C Reactive Protein 0.7 mg/dL High Less Than 0.5 finding Erythrocyte Sed Rate 33 MM/HR High 0-20 Lyme Disease Serology Negative Negative 68 Comp Metabolic Panel 01/01/2010 Sodium 137 mmol/L 135-145 Potassium 4.2 mmol/L 3.5-5.0 Chloride 104 mmol/L 101-111 Co2 (Carbon Dioxide) 26.0 mmol/L 22-32 Anion Gap 7.0 mmol/L 2-11 69 Glucose 98 mg/dL 70-100 70 BUN 12 mg/dL 6-24 Creatinine 1.00 mg/dL 0.50-1.40 One Over Creatinine 1.00 BUN/Creatinine Ratio 12.0 8-20 Calcium 9.1 mg/dL 8.1-9.9 71 Total Protein 6.9 GM/DL 6.2-8.1 Albumin 4.2 GM/DL 3.2-5.2 Globulin 2.7 GM/DL 2-4 Albumin/Globulin Ratio 1.6 1-3 Bilirubin Total 0.9 mg/dL 0.4-1.5 72 Alkaline Phosphatase 93 U/L 39-117 Alt (SGPT) 58 U/L 17-63 Ast (Sgot) 38 U/L 12-42 eGFR Non- 80.5 > 60 eGFR 97.4 > 60 73 Lipid Profile (Trig/Chol/HDL) 01/01/2010 Triglyceride 136 mg/dL 40-200 Cholesterol 164 mg/dL Less Than 200 74 High Density Lipoprotein 53 mg/dL 40-60 75 Cholesterol/HDL Ratio 3.09 AVERAGE 1-4.97 Low Density Lipoprotein 84 mg/dL Less Than 100 76 1 Because ethnic data is not always readily available, this report includes an eGFR for both -Americans and non- Americans. The National Kidney Disease Education Program (NKDEP) does not endorse the use of the MDRD equation for patients that are not between the ages of 18 and 70, are , have extremes of body size, muscle mass, or nutritional status, or are non- or non-. According to the National Kidney Foundation, irrespective of diagnosis, the stage of the disease is based on the level of kidney function: Stage Description GFR(mL/min/1.73 m(2)) 1 Kidney damage with normal or decreased GFR 90 2 Kidney damage with mild decrease in GFR 60-89 3 Moderate decrease in GFR 30-59 4 Severe decrease in GFR 15-29 5 Kidney failure <15 (or dialysis) 2 Desirable: <150 Borderline High: 150-199 High: 200-499 Very High: >500 3 Desirable: <200 Borderline High: 200-239 High: >239 4 Low: <40 Desirable: 40-60 High: >60 5 Desirable: <100 Near Optimal: 100-129 Borderline High: 130-159 High: 160-189 Very High: >189 6 Because ethnic data is not always readily available, this report includes an eGFR for both -Americans and non- Americans. The National Kidney Disease Education Program (NKDEP) does not endorse the use of the MDRD equation for patients that are not between the ages of 18 and 70, are , have extremes of body size, muscle mass, or nutritional status, or are non- or non-. According to the National Kidney Foundation, irrespective of diagnosis, the stage of the disease is based on the level of kidney function: Stage Description GFR(mL/min/1.73 m(2)) 1 Kidney damage with normal or decreased GFR 90 2 Kidney damage with mild decrease in GFR 60-89 3 Moderate decrease in GFR 30-59 4 Severe decrease in GFR 15-29 5 Kidney failure <15 (or dialysis) 7 Because ethnic data is not always readily available, this report includes an eGFR for both -Americans and non- Americans. The National Kidney Disease Education Program (NKDEP) does not endorse the use of the MDRD equation for patients that are not between the ages of 18 and 70, are , have extremes of body size, muscle mass, or nutritional status, or are non- or non-. According to the National Kidney Foundation, irrespective of diagnosis, the stage of the disease is based on the level of kidney function: Stage Description GFR(mL/min/1.73 m(2)) 1 Kidney damage with normal or decreased GFR 90 2 Kidney damage with mild decrease in GFR 60-89 3 Moderate decrease in GFR 30-59 4 Severe decrease in GFR 15-29 5 Kidney failure <15 (or dialysis) 8 DO THIS IN 6 MONTHS 9 Serum levels of PSA measured using the [employer] DXI Hybritech immunoassay should not be interpreted as absolute evidence of the presence or absence of disease. The PSA value should be used in conjunction with other pertinent clinical diagnostic procedures. A PSA value in the range of 0.1 to 0.6 ng/ml is indeterminate if being used as an indicator of recurrent or residual disease. The values obtained with different assay methods or kits cannot be used interchangeably. 10 PT IS FASTING 11 Desirable <150 Borderline high 150-199 High 200-499 Very High >500 12 Desirable <200 Borderline high 200-239 High >239 13 Low <40 Desirable: 40-60 High: >60 14 Desirable: <100 mg/dL Near Optimal: 100-129 mg/dL Borderline High: 130-159 mg/dL High: 160-189 mg/dL Very High: >189 mg/dL 15 Because ethnic data is not always readily available, this report includes an eGFR for both -Americans and non- Americans. The National Kidney Disease Education Program (NKDEP) does not endorse the use of the MDRD equation for patients that are not between the ages of 18 and 70, are , have extremes of body size, muscle mass, or nutritional status, or are non- or non-. According to the National Kidney Foundation, irrespective of diagnosis, the stage of the disease is based on the level of kidney function: Stage Description GFR(mL/min/1.73 m(2)) 1 Kidney damage with normal or decreased GFR 90 2 Kidney damage with mild decrease in GFR 60-89 3 Moderate decrease in GFR 30-59 4 Severe decrease in GFR 15-29 5 Kidney failure <15 (or dialysis) 16 Normal Range 180 to 914 Indeterminate Range 145 to 180 Deficient Range <145 17 FASTING 18 Desirable <150 Borderline high 150-199 High 200-499 Very High >500 19 Desirable <200 Borderline high 200-239 High >239 20 Low <40 Desirable: 40-60 High: >60 21 Desirable: <100 mg/dL Near Optimal: 100-129 mg/dL Borderline High: 130-159 mg/dL High: 160-189 mg/dL Very High: >189 mg/dL 22 Because ethnic data is not always readily available, this report includes an eGFR for both -Americans and non- Americans. The National Kidney Disease Education Program (NKDEP) does not endorse the use of the MDRD equation for patients that are not between the ages of 18 and 70, are , have extremes of body size, muscle mass, or nutritional status, or are non- or non-. According to the National Kidney Foundation, irrespective of diagnosis, the stage of the disease is based on the level of kidney function: Stage Description GFR(mL/min/1.73 m(2)) 1 Kidney damage with normal or decreased GFR 90 2 Kidney damage with mild decrease in GFR 60-89 3 Moderate decrease in GFR 30-59 4 Severe decrease in GFR 15-29 5 Kidney failure <15 (or dialysis) 23 FASTING 24 PT IS FASTING 25 Because ethnic data is not always readily available, this report includes an eGFR for both -Americans and non- Americans. The National Kidney Disease Education Program (NKDEP) does not endorse the use of the MDRD equation for patients that are not between the ages of 18 and 70, are , have extremes of body size, muscle mass, or nutritional status, or are non- or non-. According to the National Kidney Foundation, irrespective of diagnosis, the stage of the disease is based on the level of kidney function: Stage Description GFR(mL/min/1.73 m(2)) 1 Kidney damage with normal or decreased GFR 90 2 Kidney damage with mild decrease in GFR 60-89 3 Moderate decrease in GFR 30-59 4 Severe decrease in GFR 15-29 5 Kidney failure <15 (or dialysis) 26 Desirable <150 Borderline high 150-199 High 200-499 Very High >500 27 Desirable <200 Borderline high 200-239 High >239 28 Low <40 Desirable: 40-60 High: >60 29 Desirable <100 Near Optimal 100-129 Borderline high 130-159 High 160-189 Very High >189 30 Fasting 31 Fasting 32 Because ethnic data is not always readily available, this report includes an eGFR for both -Americans and non- Americans. The National Kidney Disease Education Program (NKDEP) does not endorse the use of the MDRD equation for patients that are not between the ages of 18 and 70, are , have extremes of body size, muscle mass, or nutritional status, or are non- or non-. According to the National Kidney Foundation, irrespective of diagnosis, the stage of the disease is based on the level of kidney function: Stage Description GFR(mL/min/1.73 m(2)) 1 Kidney damage with normal or decreased GFR 90 2 Kidney damage with mild decrease in GFR 60-89 3 Moderate decrease in GFR 30-59 4 Severe decrease in GFR 15-29 5 Kidney failure <15 (or dialysis) 33 Because ethnic data is not always readily available, this report includes an eGFR for both -Americans and non- Americans. The National Kidney Disease Education Program (NKDEP) does not endorse the use of the MDRD equation for patients that are not between the ages of 18 and 70, are , have extremes of body size, muscle mass, or nutritional status, or are non- or non-. According to the National Kidney Foundation, irrespective of diagnosis, the stage of the disease is based on the level of kidney function: Stage Description GFR(mL/min/1.73 m(2)) 1 Kidney damage with normal or decreased GFR 90 2 Kidney damage with mild decrease in GFR 60-89 3 Moderate decrease in GFR 30-59 4 Severe decrease in GFR 15-29 5 Kidney failure <15 (or dialysis) 34 HDL Interpretation: Undesirable: High Risk: Less than 40 mg/dL Desirable: Low Risk: Greater than 60 mg/dL 35 LDL Interpretation: Low Risk Optimal Level: LDL Less than 100 mg/dL Near or Above Optimal: LDL 100-129 mg/dL Borderline High Risk: LDL 130-159 mg/dL High Risk: LDL 160-189 mg/dL Very High Risk: LDL Greater than 189 mg/dL 36 FASTING 37 A metabolite of Naproxen, O-desmethylnaproxen, has been shown to interfere with the [place] method for measuring total bilirubin. Samples from patients who have taken Naproxen have shown spurious elevation in total bilirubin levels. 38 Serum levels of PSA measured using the [employer] DXI Hybritech immunoassay should not be interpreted as absolute evidence of the presence or absence of disease. The PSA value should be used in conjunction with other pertinent clinical diagnostic procedures. A PSA value in the range of 0.1 to 0.6 ng/ml is indeterminate if being used as an indicator of recurrent or residual disease. The values obtained with different assay methods or kits cannot be used interchangeably. 39 Anion gap measurement may be of limited value in the presence of any alkalosis, especially in a combined acid base disorder. . 40 A metabolite of Naproxen, O-desmethylnaproxen, has been shown to interfere with the [place] method for measuring total bilirubin. Samples from patients who have taken Naproxen have shown spurious elevation in total bilirubin levels. 41 Because ethnic data is not always readily available, this report includes an eGFR for both -Americans and non- Americans. The National Kidney Disease Education Program (NKDEP) does not endorse the use of the MDRD equation for patients that are not between the ages of 18 and 70, are , have extremes of body size, muscle mass, or nutritional status, or are non- or non-. According to the National Kidney Foundation, irrespective of diagnosis, the stage of the disease is based on the level of kidney function: Stage Description GFR(mL/min/1.73 m(2)) 1 Kidney damage with normal or decreased GFR 90 2 Kidney damage with mild decrease in GFR 60-89 3 Moderate decrease in GFR 30-59 4 Severe decrease in GFR 15-29 5 Kidney failure <15 (or dialysis) 42 INTERPRETATION %CK-MB < 5% NOT SUPPORTIVE OF DIAGNOSIS OF GA 5 - <10% INDETERMINATE; SUGGEST SERIAL STUDIES IF CLINICALLY INDICATED 10% OR > CONSISTENT WITH DIAGNOSIS OF GA . 43 New Reference Range and Interpretation effective 05/06/2002 TnI (ng/ml) INTERPRETATION Less Than 0.06 ng/mL NOT SUPPORTIVE OF DIAGNOSIS OF GA 0.06 - 0.50 ng/ml INDETERMINATE: SUGGEST SERIAL STUDIES IF CLINICALLY INDICATED. Greater than 0.5 ng/mL CONSISTENT WITH DIAGNOSIS OF GA . 44 Recommended INR for Patients on Oral Anticoagulants Prophylaxis 2.0 - 3.0 Treatment of thrombosis 2.0 - 3.0 Prevention of embolism 2.0 - 3.0 Prevention of embolism from prosthetic heart valves 2.5 - 3.5 45 DIAGNOSIS,TREATMENT,AND THERAPY MUST BE BASED ON THE INR VALUE ALONE. 46 CHOLESTEROL INTERPRETATION: Desirable: Less than 200 MG/DL Borderline-High Risk: 200-239 MG/DL High-Risk: 240 MG/DL and over 47 HDL INTERPRETATION: Undesirable: High Risk: Less than 40 MG/DL Desirable: Low Risk: Greater than 60 MG/DL 48 LDL INTERPRETATION: Low Risk Optimal Level: LDL Less than 100 MG/DL Near or Above Optimal: LDL 100-129 MG/DL Borderline High Risk: LDL 130-159 MG/DL High Risk: LDL 160-189 MG/DL Very High Risk: LDL Greater than 189 MG/DL 49 Anion gap measurement may be of limited value in the presence of any alkalosis, especially in a combined acid base disorder. . 50 A metabolite of Naproxen, O-desmethylnaproxen, has been shown to interfere with the [place] method for measuring total bilirubin. Samples from patients who have taken Naproxen have shown spurious elevation in total bilirubin levels. 51 Because ethnic data is not always readily available, this report includes an eGFR for both -Americans and non- Americans. The National Kidney Disease Education Program (NKDEP) does not endorse the use of the MDRD equation for patients that are not between the ages of 18 and 70, are , have extremes of body size, muscle mass, or nutritional status, or are non- or non-. According to the National Kidney Foundation, irrespective of diagnosis, the stage of the disease is based on the level of kidney function: Stage Description GFR(mL/min/1.73 m(2)) 1 Kidney damage with normal or decreased GFR 90 2 Kidney damage with mild decrease in GFR 60-89 3 Moderate decrease in GFR 30-59 4 Severe decrease in GFR 15-29 5 Kidney failure <15 (or dialysis) 52 Because ethnic data is not always readily available, this report includes an eGFR for both -Americans and non- Americans. The National Kidney Disease Education Program (NKDEP) does not endorse the use of the MDRD equation for patients that are not between the ages of 18 and 70, are , have extremes of body size, muscle mass, or nutritional status, or are non- or non-. According to the National Kidney Foundation, irrespective of diagnosis, the stage of the disease is based on the level of kidney function: Stage Description GFR(mL/min/1.73 m(2)) 1 Kidney damage with normal or decreased GFR 90 2 Kidney damage with mild decrease in GFR 60-89 3 Moderate decrease in GFR 30-59 4 Severe decrease in GFR 15-29 5 Kidney failure <15 (or dialysis) 53 A metabolite of Naproxen, O-desmethylnaproxen, has been shown to interfere with the [place] method for measuring total bilirubin. Samples from patients who have taken Naproxen have shown spurious elevation in total bilirubin levels. 54 Please note updated reference range, effective 02/21/10 55 A metabolite of Naproxen, O-desmethylnaproxen, has been shown to interfere with the [place] method for measuring total bilirubin. Samples from patients who have taken Naproxen have shown spurious elevation in total bilirubin levels. 56 Please note updated reference range, effective 02/21/10 57 The World Health Organization (WHO) Hepatitis B Immunoglobulin 1st International Reference Preparation (1976): The accepted criteria for immunity to HBV is anti-HBs activity greater than or equal to 10 mIU/mL. An Index Value of 1.00 is equivalent to 10 mIU/mL. Samples with an Index Value of 1.00 or greater are considered reactive (protective) in accordance with the CDC guidelines. 58 Test Performed by: [facility] [address] [place] [id number] Cafe Attendant: Jian Grayson III, M.D. 59 A metabolite of Naproxen, O-desmethylnaproxen, has been shown to interfere with the [place] method for measuring total bilirubin. Samples from patients who have taken Naproxen have shown spurious elevation in total bilirubin levels. 60 Please note updated reference range, effective 02/21/10 61 * SERUM LEVELS OF PSA MEASURED USING THE [employer] ACCESS HYBRITECH IMMUNOASSAY SHOULD NOT BE INTERPRETED ABSOLUTE EVIDENCE OF THE PRESENCE OR ABSENCE OF DISEASE. THE PSA VALUE SHOULD BE USED IN CONJUNCTION WITH OTHER PERTINENT CLINICAL DIAGNOSTIC PROCEDURES. A PSA value in the range of 0.1 to 0.6 ng/ml is indeterminate if being used as an indicator of recurrent or residual disease. . 62 Anion gap measurement may be of limited value in the presence of any alkalosis, especially in a combined acid base disorder. . 63 A metabolite of Naproxen, O-desmethylnaproxen, has been shown to interfere with the [place] method for measuring total bilirubin. Samples from patients who have taken Naproxen have shown spurious elevation in total bilirubin levels. 64 Because ethnic data is not always readily available, this report includes an eGFR for both -Americans and non- Americans. The National Kidney Disease Education Program (NKDEP) does not endorse the use of the MDRD equation for patients that are not between the ages of 18 and 70, are , have extremes of body size, muscle mass, or nutritional status, or are non- or non-. According to the National Kidney Foundation, irrespective of diagnosis, the stage of the disease is based on the level of kidney function: Stage Description GFR(mL/min/1.73 m(2)) 1 Kidney damage with normal or decreased GFR 90 2 Kidney damage with mild decrease in GFR 60-89 3 Moderate decrease in GFR 30-59 4 Severe decrease in GFR 15-29 5 Kidney failure <15 (or dialysis) 65 CHOLESTEROL INTERPRETATION: Desirable: Less than 200 MG/DL Borderline-High Risk: 200-239 MG/DL High-Risk: 240 MG/DL and over 66 HDL INTERPRETATION: Undesirable: High Risk: Less than 40 MG/DL Desirable: Low Risk: Greater than 60 MG/DL 67 LDL INTERPRETATION: Low Risk Optimal Level: LDL Less than 100 MG/DL Near or Above Optimal: LDL 100-129 MG/DL Borderline High Risk: LDL 130-159 MG/DL High Risk: LDL 160-189 MG/DL Very High Risk: LDL Greater than 189 MG/DL 68 Serologic response to B. burgdorferi infection is not detected, but cannot rule out early infection during which low or undetectable antibody levels to B. burgdorferi may be present. If clinically indicated, a new serum specimen should be submitted in 7-14 days. Test Performed by: [facility] [address] [place] [id number] Cafe Attendant: Jian Grayson III, M.D. 69 Anion gap measurement may be of limited value in the presence of any alkalosis, especially in a combined acid base disorder. . 70 Note change in reference range as of 03/23/08. The change was based on recommendations from the [place] [employer]. 71 Please note change in reference range effective 08 . 72 A metabolite of Naproxen, O-desmethylnaproxen, has been shown to interfere with the Jendrassik-Justyna method for measuring total bilirubin. Samples from patients who have taken Naproxen have shown spurious elevation in total bilirubin levels. 73 Because ethnic data is not always readily available, this report includes an eGFR for both -Americans and non- Americans. The National Kidney Disease Education Program (NKDEP) does not endorse the use of the MDRD equation for patients that are not between the ages of 18 and 70, are , have extremes of body size, muscle mass, or nutritional status, or are non- or non-. According to the National Kidney Foundation, irrespective of diagnosis, the stage of the disease is based on the level of kidney function: Stage Description GFR(mL/min/1.73 m(2)) 1 Kidney damage with normal or decreased GFR 90 2 Kidney damage with mild decrease in GFR 60-89 3 Moderate decrease in GFR 30-59 4 Severe decrease in GFR 15-29 5 Kidney failure <15 (or dialysis) 74 CHOLESTEROL INTERPRETATION: Desirable: Less than 200 MG/DL Borderline-High Risk: 200-239 MG/DL High-Risk: 240 MG/DL and over 75 HDL INTERPRETATION: Undesirable: High Risk: Less than 40 MG/DL Desirable: Low Risk: Greater than 60 MG/DL 76 LDL INTERPRETATION: Low Risk Optimal Level: LDL Less than 100 MG/DL Near or Above Optimal: LDL 100-129 MG/DL Borderline High Risk: LDL 130-159 MG/DL High Risk: LDL 160-189 MG/DL Very High Risk: LDL Greater than 189 MG/DL Procedures Date CPT Code Description Status 03/05/2018 97096 Inject/Drain Joint/Bursa Major W/O US Completed 05/08/2017 64846 Carpal Tunnel Release Completed 05/08/2017 49973 Carpal Tunnel Release Completed 12/28/2014 Colonoscopy Completed 03/05/2012 20894 EKG Tracing & Interpretation Completed 03/06/2011 61748 EKG Tracing & Interpretation Completed 01/29/2009 06158 EKG Tracing & Interpretation Completed 03/15/2007 84738 EKG Tracing & Interpretation Completed 11/15/2004 Colonoscopy Completed Encounters Type Date Location Provider CPT E/M Dx Office Visit 03/05/2018 [facility] Brandie Jacobo M.D. 05610 M25.561 2:00p [facility] [place] M25.562 M25.462 M25.461 M17.0 Office Visit 01/14/2018 8:40a [facility] Mari Mcneal M.D. 97370 I10 - Miriam R74.0 Z68.32 Office Visit 03/30/2017 9:15a [facility] Frances Martines, 74711 G56.03 [facility] [place] Guerra Office Visit 03/12/2017 11:00a [facility] Roly Luna, 69924 M54.5 [facility] [place] MAURICIO G90.09 G60.9 Office Visit 03/04/2017 9:30a [facility] Chelsea Christine, 43484 G56.03 [facility] [place] GARRISON Office Visit 12/19/2016 1:00p [facility] Mari Mcneal 75462 I10 - Miriam Guerra R74.0 Office Visit 06/20/2016 11:20a [facility] Mari Mcneal 80502 Z00.00 - Miriam Guerra I10 R74.0 M54.5 M25.562 Z12.5 Z87.891 Office Visit 01/22/2016 10:00a [facility] [place] [address] N41.0 - Vest Office Visit 12/10/2015 8:40a [facility] Mari Mcneal 92147 I10 - Miriam Guerra Office Visit 11/27/2014 3:40p [facility] Arlyn Ware, N.PNasra 83015 386.11 - Vest 110.5 709.9 Office Visit 11/09/2014 10:00a [facility] Mari Mcneal 24178 401.1 - Vest M.D. V03.82 Office Visit 09/20/2014 3:30p [facility] [place] [address] 724.5 Vest 719.41 553.29 553.1 Office Visit 07/11/2014 10:40a [facility] Mazin Shaw M.D. 99305 724.5 - Vest 728.89 724.8 Office Visit 05/10/2014 1:00p [facility] Marigela Mcneal 37212 V70.0 - Vest M.D. 401.1 272.4 V04.81 Office Visit 09/16/2013 11:00a [facility] Marigela Mcneal 99922 401.1 - Vest M.D. 790.4 Office Visit 06/14/2013 10:00a [facility] Mari Mcneal 03725 724.2 - Vest M.D. 790.4 Office Visit 03/15/2013 1:40p [facility] Mari Mcneal 42715 V70.0 - Vest M.D. V81.2 401.1 790.4 285.9 300.00 Office Visit 10/18/2012 2:40p [facility] Marigela Mcneal 52037 300.00 - Vest M.D. 401.1 790.4 285.9 Office Visit 05/20/2012 3:40p [facility] Marigela Mcneal 85846 300.00 - Vest M.D. 401.1 790.4 Office Visit 04/19/2012 4:00p [facility] Marigela Mcneal 34556 300.00 - Vest M.D. V04.81 Office Visit 03/09/2012 9:20a [facility] Mari Mcneal 94824 V70.0 - Vest M.D. 780.52 790.4 401.1 272.4 V76.44 Office Visit 03/05/2012 9:40a [facility] Mari Mcneal 44141 300.00 - Vest M.D. 786.50 790.4 Office Visit 10/14/2011 4:00p [facility] Arlyn Ware N.Evita 73718 388.30 - Vest Office Visit 09/08/2011 10:20a [facility] Mari Cotton, 03491 401.1 - Vest M.D. 790.4 272.4 V76.44 Office Visit 08/05/2011 4:00p [facility] Mari Cotton, 56437 724.5 - Vest M.D. 401.1 Office Visit 07/04/2011 11:40a DO Not Use Arlyn Ware, 20889 V58.32 [employer] N.P. Office Visit 03/06/2011 9:00a DO Not Use Mari Cotton, 53332 V70.0 [employer] M.D. 401.1 599.70 790.4 782.1 Office Visit 02/11/2011 1:00p DO Not Use Mari Cotton, 96656 724.2 [employer] M.D. 727.03 401.1 V76.44 Office Visit 08/29/2010 3:15p DO Not Use Mari Cotton, 56176 401.1 [employer] M.D. 729.5 Office Visit 07/01/2010 1:30p DO Not Use Mari Cotton, 09069 309.9 [employer] M.D. 729.5 Office Visit 06/03/2010 2:15p DO Not Use Mari Cotton, 37784 729.5 [employer] M.D. Office Visit 01/01/2010 8:30a DO Not Use Mari Cotton, 55827 401.1 [employer] M.D. 530.81 782.9 309.9 Office Visit 10/01/2009 9:30a DO Not Use Sarai Newton, 28778 530.81 [employer] M.D. 401.1 300.00 Office Visit 07/09/2009 3:00p DO Not Use Sarai Newton, 27088 692.9 [employer] M.D. Office Visit 06/05/2009 4:15p DO Not Use Sarai Newton, 77641 789.07 [employer] M.D. Office Visit 04/03/2009 1:15p DO Not Use RadomsSarai schulte, 32546 V70.0 [employer] M.D. 401.1 V05.8 Office Visit 01/29/2009 2:00p DO Not Use RadomsSarai schulte, 88413 272.0 [employer] M.D. 786.50 401.1 Office Visit 10/17/2008 10:00a DO Not Use RadomsSarai schulte, 51039 272.0 [employer] M.D. 401.1 Office Visit 04/17/2008 9:15a DO Not Use RadomskiCarmena, 16988 272.0 [employer] M.D. 401.1 Office Visit 03/06/2008 8:45a DO Not Use RadomsSarai shculte, 98163 V70.0 [employer] M.D. 401.1 Office Visit 12/01/2007 8:45a DO Not Use RadomsSarai schulte, 34765 272.0 [employer] M.D. 530.81 401.1 Office Visit 05/31/2007 8:30a DO Not Use RadomsCarmen schultea, 80188 272.0 [employer] M.D. 401.1 Office Visit 04/26/2007 9:15a DO Not Use RadomsSarai schulte, 49737 272.0 [employer] M.D. 401.1 Office Visit 03/15/2007 10:45a DO Not Use RadomsSarai schulte, 83158 272.0 [employer] M.D. 300.00 401.1 V70.0 V76.51 Plan of Care Future Appointment(s):04/27/2018 1:30 pm - Im Nurse Holter Monitor at [facility]04/26/2018 1:30 pm - Im Nurse Holter Monitor at [facility]04/19/2018 - Jeus Parnell, NPR42 Dizziness and giddinessNew Orders:EKGorthostatic blood pressuresHolter MonitorComments:I am ordering some bloodwork and a holter monitor (a device that will monitor your heart for 24 hours). It is very important to stay well hydrated. The goal is 64 ounces of water daily. If you have anychest pain, palpitations, or severe dizziness go to the ER.Z23 Encounter for [id number] Essential (primary) hypertensionComments:I recommend checking your blood pressure at least twice weekly and reporting persistently low or high readings.
--- OUTSIDE RECORDS SUMMARY | 2018-04-19 16:27 | XMS REPORT ---
:1945 External Reference #:[id number] Author Organization [facility] Address [facility] [place] [address] [place] [address] Phone [phone] Care Team Providers Name Role Phone Mari Mcneal MD Primary Care Physician Unavailable Payers Type Date Identification Numbers Payment Provider Subscriber Medicare Primary Policy Number: [id number] Medicare Po Flores PayID: [id number] [address] [place] [address] Medigap Part B Effective: 2012 Policy Number: Medicare Po Flores [id number] Expires: 2018 PayID: [id number] [address] [place] [address] Medigap Part B Effective: 2012 Policy Number: Facets Po Flores [id number] PayID: [id number] [address] [place] [address] [facility] Effective: 2010 Policy Number: [facility] [id number] Expires: 2012 Group Number: [id number] PO Box Group Name: Claudinejimmy GoldsmithHECTOR martinez [id number] PayID: [id number] Problems Date Description Provider Status Onset: 06/03/2010 [...] 59 Father due to Guillain Cirrhosis Years) Wallace : (age 88 Mother due to COPD also, CAD, PVD Years) Siblings 2: one s/p [place] age 51; one drinker; other brother esoph varices (?), no had CVA at age 63 cirrhosis, not a First Brother Heart Disease First Brother GI Bleed First Brother Liver disease Second Brother Throat polyps living at age 59 Social History Type Date Description Comments Marital Status Lives With Spouse 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 2012 daily at bedtime Fluticasone 10/13/ Hx Suspension 50mcg/Act 1unit 2 sprays 388.30 Mari Propionate 2011 - each [place], 11/12/ nostril M.D. 2011 daily Tramadol HCL 08/05/ Hx Tablets 50mg 40tab 1-2 724.5 Mari 2011 tablets [place], 11/09/ every 6 M.D. 2015 hours as needed Fiber 7 03/06/ Hx Powder 1 tsp Mari 2010 - daily [place], 06/14/ M.D. 2012 Ketoconazole 03/06/ Hx Cream 2% 30gm apply 782.1 Mari 2010 - thin [place], 06/20/ film M.D. 2015 twice daily Aspirin 01/01/ Hx Chewtabs 81mg 1 tablet [facility] 2009 - once [place], 04/19/ daily M.D. 2011 Lisinopril 12/27/ Hx [...] Tablets 60mg 180ta Take One Mari2009 Tablet [place], 10/13/ By Mouth M.D. 2011 Twice Daily as Needed Buspirone HCL 12/27/ Hx Tablets 15mg 60tab Take One Mari 2009 - Tablet [place], 04/19/ By Mouth M.D. 2011 Twice A Day Pravastatin 12/27/ Hx Tablets 80mg 90tab Take One Mari Sodium 2009 Tablet [place], 10/21/ By Mouth M.D. 2013 AT Bedtime. [...] CPT Code Status Date Vaccine Lot # [id number] Given 07/16/2017 Pneumonia Vaccine [id number] 75527 Given 05/18/2017 Influenza Virus Vaccine, Quadrivalent, Split, [id number] Preservative Free 59792 Given 05/07/2016 Influenza Virus Vaccine, Quadrivalent, Split [id number] Virus, [place] Use 83160 Given 05/11/2015 Influenza Virus Vaccine, Quadrivalent, Split, [id number] Preservative Free 86303 Given 11/09/2014 Pneumococcal Conjugate Vaccine 13 Valent For [id number] Intramuscular Use 54053 Given 05/10/2014 Influenza Virus Vaccine, Quadrivalent, Split, [id number] Preservative Free [id number] Given 04/19/2012 Fluzone Vaccine [id number] 17522 Given 06/03/2010 Pneumonia Vaccine 02581 Given 04/03/2009 Zoster (Zostavax) 93769 Given 12/21/2006 Tdap - Tetanus/Diptheria/Acellular Pertussis [id number] 57578 Given 12/21/2006 Tdap - Tetanus/Diptheria/Acellular Pertussis 04436 Given 12/21/2006 Tdap - Tetanus/Diptheria/Acellular Pertussis 97044 Given 06/17/2006 Influenza Virus 3Yrs & Over Vital Signs Date Vital Result Comment 04/09/2018 Height 70 inches 5'10" Weight 227.00 [...] 8 PSA Diagnostic 0.476 ng/mL 0-4.000 9 Comp Metabolic Panel 06/18/2016 Sodium 137 mmol/L [...] 77.9 >60 10 Egfr 100.2 >60 10, 11 Lipid Profile (Trig/Chol/HDL) 06/18/2016 Triglycerides 208 mg/dL 10, 12 Cholesterol 189 mg/dL 10, 13 HDL Cholesterol 51.7 mg/dL 10, 14 LDL Cholesterol 96 mg/dL 10, 15 Urinalysis Profile 02/01/2016 Urine Color Yellow Urine Appearance Clear Urine Specific [place] 1.013 1.010-1.030 Urine pH 7.0 5-9 Urine Urobilinogen Negative Negative Urine Ketones Negative Negative Urine Protein Negative Negative Urine Leukocytes Negative Negative Urine Blood Negative Negative Urine Nitrite Negative Negative Urine Bilirubin Negative Negative Urine Glucose Negative Negative Laboratory test finding 12/03/2015 Alt (SGPT) 54 U/L High 7-52 Ast (Sgot) 32 U/L 13-39 Magnesium 2.0 mg/dL 1.9-2.7 Vitamin B12 518 pg/mL 180-914 16 Laboratory test finding 06/06/2015 Ferritin 165.3 ng/mL 24-336 17, 18 Iron & Iron Binding Capacity 06/06/2015 Iron 207 g/dL 50-212 17 Unsaturated Iron Binding 111 g/dL 17 Total Iron Binding Capacity 318 g/dL 250-450 17 % Iron Saturation 65 % High 15-55 17 Comp Metabolic Panel 06/06/2015 Sodium 136 mmol/L [...] 73.7 >60 17 Egfr 94.8 >60 17, 19 Lipid Profile (Trig/Chol/HDL) 06/06/2015 Triglycerides 209 mg/dL 17, 20 Cholesterol 182 mg/dL 17, 21 HDL Cholesterol 55.2 mg/dL 17, 22 LDL Cholesterol 85 mg/dL 17, 23 Comp Metabolic Panel 05/29/2014 Sodium 136 mmol/L [...] 1 % 0-6 RBC Morphology Normal Normal Comp Metabolic Panel 06/06/2013 Sodium 136 mmol/L [...] Egfr Non- 84.7 >60 Egfr 108.9 >60 30 Laboratory test finding 06/06/2013 GGTP 174 U/L High 7-50 31 CBC Auto Diff 06/06/2013 White Blood Count [...] Cells % 0.1 Laboratory test finding 06/06/2013 Vitamin B12 504 pg/mL 180-914 32 Comp Metabolic Panel 01/25/2013 Sodium 138 [...] finding 04/03/2012 PTT (Aptt) 25.9 SEC 25.1-38.5 Iron & Iron Binding Capacity 03/05/2012 Iron Total 131 g/dL 45-182 Unsaturated Iron Binding 209 g/dL Total Iron Binding Capacity 340 g/dL 250-450 % Iron Saturation 39 % 15-55 Laboratory test finding 03/05/2012 Ferritin 310 NG/ML 24-336 Lipid Profile (Trig/Chol/HDL) 03/03/2012 Triglyceride 104 mg/dL [...] 62 U/L 17-63 Ast (Sgot) 37 U/L 12-42 Liver Function Panel 09/03/2011 Total Protein 7.1 GM/DL 6.2-8.1 Albumin 4.1 GM/DL 3.2-5.2 Globulin 3.0 GM/DL 2-4 Albumin/Globulin Ratio 1.4 1-3 Bilirubin Total 0.8 mg/dL 0.4-1.5 55 Bilirubin Direct 0.1 mg/dL 0.1-0.5 Indirect Bilirubin 0.7 mg/dL 0.3-1.0 56 Alkaline Phosphatase 107 U/L 39-117 Alt (SGPT) 67 U/L High 17-63 Ast (Sgot) 40 U/L 12-42 Laboratory test finding 04/14/2011 Hepatitis B Core AB, Negative Negative 57 Total Hepatitis B Surface AB 04/14/2011 Hepatitis B Surface Nonreactive Nonreactive AB Hbsab Index 0.57 58 Laboratory test finding 04/14/2011 Hepatitis C Antibody Nonreactive Nonreactive Hepatitis B Surface Ag Nonreactive Nonreactive Urinalysis W/Microscopic 04/14/2011 Ua Color YELLOW Yellow Appearance-Urine CLEAR Clear Specific [place]-Ur 1.011 1.010-1.030 Esterase-Urine NEGATIVE Negative Nitrite NEGATIVE Negative [id number] NEGATIVE Negative Protein-Urine NEGATIVE Negative PH-Urine 6.5 5-9 Blood-Urine NEGATIVE Negative Ketones-Urine NEGATIVE Negative Bilirubin-Ur NEGATIVE Negative Glucose-Urine NEGATIVE Negative WBC-Urine 0-2 0-5 RBC-Urine 0-2 0-2 Liver Function Panel 04/14/2011 Total Protein 6.8 GM/DL 6.2-8.1 Albumin 4.1 GM/DL 3.2-5.2 Globulin 2.7 GM/DL 2-4 Albumin/Globulin Ratio 1.5 1-3 Bilirubin Total 1.0 mg/dL 0.4-1.5 59 Bilirubin Direct 0.2 mg/dL 0.1-0.5 Indirect Bilirubin 0.8 mg/dL 0.3-1.0 60 Alkaline Phosphatase 112 U/L 39-117 Alt (SGPT) 79 U/L High 17-63 Ast (Sgot) 44 U/L High 12-42 Lipid Profile (Trig/Chol/HDL) 03/03/2011 Triglyceride 169 mg/dL 40-200 Cholesterol 160 mg/dL Less Than 200 61 High Density Lipoprotein 46 mg/dL 40-60 62 Cholesterol/HDL Ratio 3.48 AVERAGE 1-4.97 Low Density Lipoprotein 80 mg/dL Less Than 100 63 Comp Metabolic Panel 03/03/2011 Sodium 139 mmol/L 135-145 Potassium 5.0 mmol/L 3.5-5.0 Chloride 103 mmol/L 101-111 Co2 (Carbon Dioxide) 28.0 mmol/L 22-32 Anion Gap 8.0 mmol/L 2-11 64 Glucose 98 mg/dL 70-100 BUN 12 mg/dL 6-24 Creatinine 1.00 mg/dL 0.50-1.40 One Over Creatinine 1.00 BUN/Creatinine Ratio 12.0 8-20 Calcium 9.3 mg/dL 8.1-9.9 Total Protein 6.9 GM/DL 6.2-8.1 Albumin 3.9 GM/DL 3.2-5.2 Globulin 3.0 GM/DL 2-4 Albumin/Globulin Ratio 1.3 1-3 Bilirubin Total 0.7 mg/dL 0.4-1.5 65 Alkaline Phosphatase 98 U/L 39-117 Alt (SGPT) 66 U/L High 17-63 Ast (Sgot) 32 U/L 12-42 eGFR Non- 75.5 > 60 eGFR 97.1 > 60 66 Laboratory test finding 03/03/2011 PSA Screening 0.38 NG/ML 0-4 67 Laboratory test finding 07/15/2010 Erythrocyte Sed Rate 21 MM/HR High 0- 20 CBC With Electronic Diff 07/15/2010 White Blood [...] 0-0.6 Abs Basophils 0 0-0.2 Laboratory test finding 07/15/2010 C Reactive Protein 0.8 mg/dL High Less Than 0.5 Laboratory test finding 06/17/2010 C Reactive Protein 0.7 mg/dL High Less Than 0.5 Erythrocyte Sed Rate 33 MM/HR High 0-20 Lyme Disease Serology Negative Negative 68 Lipid Profile (Trig/Chol/HDL) 01/01/2010 Triglyceride 136 mg/dL 40-200 Cholesterol 164 mg/dL Less Than 200 69 High Density Lipoprotein 53 mg/dL 40-60 70 Cholesterol/HDL Ratio 3.09 AVERAGE 1-4.97 Low Density Lipoprotein 84 mg/dL Less Than 100 71 Comp Metabolic Panel 01/01/2010 Sodium 137 mmol/L 135-145 Potassium 4.2 mmol/L 3.5-5.0 Chloride 104 mmol/L 101-111 Co2 (Carbon Dioxide) 26.0 mmol/L 22-32 Anion Gap 7.0 mmol/L 2-11 72 Glucose 98 mg/dL 70-100 73 BUN 12 mg/dL 6-24 Creatinine 1.00 mg/dL 0.50-1.40 One Over Creatinine 1.00 BUN/Creatinine Ratio 12.0 8-20 Calcium 9.1 mg/dL 8.1-9.9 74 Total Protein 6.9 GM/DL 6.2-8.1 Albumin 4.2 GM/DL 3.2-5.2 Globulin 2.7 GM/DL 2-4 Albumin/Globulin Ratio 1.6 1-3 Bilirubin Total 0.9 mg/dL 0.4-1.5 75 Alkaline Phosphatase 93 U/L 39-117 Alt (SGPT) 58 U/L 17-63 Ast (Sgot) 38 U/L 12-42 eGFR Non- 80.5 > 60 eGFR 97.4 > 60 76 1 Because ethnic data is not [...] levels of PSA measured using the Ailyn Wingo DXI Hybritech immunoassay should not be interpreted [...] used interchangeably. 10 PT IS FASTING 11 Because ethnic data is not always readily [...] 15-29 5 Kidney failure <15 (or dialysis) 12 Desirable <150 Borderline high 150-199 High 200-499 Very High >500 13 Desirable <200 Borderline high 200-239 High >239 14 Low <40 Desirable: 40-60 High: >60 15 Desirable: <100 mg/dL Near Optimal: 100-129 mg/dL Borderline High: 130-159 mg/dL High: 160-189 mg/dL Very High: >189 mg/dL 16 Normal Range 180 to 914 Indeterminate Range 145 to 180 Deficient Range <145 17 FASTING 18 FASTING 19 Because ethnic data is not always readily [...] 15-29 5 Kidney failure <15 (or dialysis) 20 Desirable <150 Borderline high 150-199 High 200-499 Very High >500 21 Desirable <200 Borderline high 200-239 High >239 22 Low <40 Desirable: 40-60 High: >60 23 Desirable: <100 mg/dL Near Optimal: 100-129 mg/dL Borderline High: 130-159 mg/dL High: 160-189 mg/dL Very High: >189 mg/dL 24 PT IS FASTING 25 Because ethnic [...] 130-159 High 160-189 Very High >189 30 Because ethnic data is not always readily [...] 15-29 5 Kidney failure <15 (or dialysis) 31 Fasting 32 Fasting 33 Because ethnic data is not always [...] levels of PSA measured using the Ailyn Wingo DXI Hybritech immunoassay should not be interpreted [...] has been shown to interfere with the Jendrassik-Penbrook method for measuring total bilirubin. Samples from [...] < 5% NOT SUPPORTIVE OF DIAGNOSIS OF [place] 5 - <10% INDETERMINATE; SUGGEST SERIAL STUDIES IF CLINICALLY INDICATED 10% OR > CONSISTENT WITH DIAGNOSIS OF [place] . 43 New Reference Range and Interpretation effective 05/06/2002 TnI (ng/ml) INTERPRETATION Less Than 0.06 ng/mL NOT SUPPORTIVE OF DIAGNOSIS OF [place] 0.06 - 0.50 ng/ml INDETERMINATE: SUGGEST SERIAL STUDIES IF CLINICALLY INDICATED. Greater than 0.5 ng/mL CONSISTENT WITH DIAGNOSIS OF [place] . 44 Recommended INR for Patients on [...] has been shown to interfere with the Jendrassik-Penbrook method for measuring total bilirubin. Samples from [...] has been shown to interfere with the Jendrassik-Penbrook method for measuring total bilirubin. Samples from patients who have taken Naproxen have shown spurious elevation in total bilirubin levels. 54 Please note updated reference range, effective 02/21/10 55 A metabolite of Naproxen, O-desmethylnaproxen, has been shown to interfere with the Jendrassik-Penbrook method for measuring total bilirubin. Samples from patients who have taken Naproxen have shown spurious elevation in total bilirubin levels. 56 Please note updated reference range, effective 02/21/10 57 Test Performed by: [facility] of [facility] Med [facility] Pathology [address] [place], [place] [id number] Real Property Appraiser: Jian Grayson III, M.D. 58 The World Health Organization (WHO) Hepatitis B Immunoglobulin 1st International Reference Preparation (1976): The accepted criteria for immunity to HBV is anti-HBs activity greater than or equal to 10 mIU/mL. An Index Value of 1.00 is equivalent to 10 mIU/mL. Samples with an Index Value of 1.00 or greater are considered reactive (protective) in accordance with the CDC guidelines. 59 A metabolite of Naproxen, O-desmethylnaproxen, has been shown to interfere with the Jendrassik-Penbrook method for measuring total bilirubin. Samples from patients who have taken Naproxen have shown spurious elevation in total bilirubin levels. 60 Please note updated reference range, effective 02/21/10 61 CHOLESTEROL INTERPRETATION: Desirable: Less than 200 MG/DL Borderline-High Risk: 200-239 MG/DL High-Risk: 240 MG/DL and over 62 HDL INTERPRETATION: Undesirable: High Risk: Less than 40 MG/DL Desirable: Low Risk: Greater than 60 MG/DL 63 LDL INTERPRETATION: Low Risk Optimal Level: LDL Less than 100 MG/DL Near or Above Optimal: LDL 100-129 MG/DL Borderline High Risk: LDL 130-159 MG/DL High Risk: LDL 160-189 MG/DL Very High Risk: LDL Greater than 189 MG/DL 64 Anion gap measurement may be of limited value in the presence of any alkalosis, especially in a combined acid base disorder. . 65 A metabolite of Naproxen, O-desmethylnaproxen, has been shown to interfere with the Jendrassik-Justyna method for measuring total bilirubin. Samples from patients who have taken Naproxen have shown spurious elevation in total bilirubin levels. 66 Because ethnic data is not always readily [...] 15-29 5 Kidney failure <15 (or dialysis) 67 * SERUM LEVELS OF PSA MEASURED USING THE AILYN [employer] ACCESS HYBRITECH IMMUNOASSAY SHOULD NOT BE INTERPRETED ABSOLUTE EVIDENCE OF THE PRESENCE OR ABSENCE OF DISEASE. THE PSA VALUE SHOULD BE USED IN CONJUNCTION WITH OTHER PERTINENT CLINICAL DIAGNOSTIC PROCEDURES. A PSA value in the range of 0.1 to 0.6 ng/ml is indeterminate if being used as an indicator of recurrent or residual disease. . 68 Serologic response to B. burgdorferi infection is not detected, but cannot rule out early infection during which low or undetectable antibody levels to B. burgdorferi may be present. If clinically indicated, a new serum specimen should be submitted in 7-14 days. Test Performed by: [facility] of Lab Med and Pathology [address] [place] [id number] Real Property Appraiser: Jian Grayson III, M.D. 69 CHOLESTEROL INTERPRETATION: Desirable: Less than 200 MG/DL Borderline-High Risk: 200-239 MG/DL High-Risk: 240 MG/DL and over 70 HDL INTERPRETATION: Undesirable: High Risk: Less than 40 MG/DL Desirable: Low Risk: Greater than 60 MG/DL 71 LDL INTERPRETATION: Low Risk Optimal Level: LDL Less than 100 MG/DL Near or Above Optimal: LDL 100-129 MG/DL Borderline High Risk: LDL 130-159 MG/DL High Risk: LDL 160-189 MG/DL Very High Risk: LDL Greater than 189 MG/DL 72 Anion gap measurement may be of limited value in the presence of any alkalosis, especially in a combined acid base disorder. . 73 Note change in reference range as of 03/23/08. The change was based on recommendations from the [place] [employer]. 74 Please note change in reference range effective 08 . 75 A metabolite of Naproxen, O-desmethylnaproxen, has been shown to interfere with the Jendrassik-Justyna method for measuring total bilirubin. Samples from patients who have taken Naproxen have shown spurious elevation in total bilirubin levels. 76 Because ethnic data is not always readily [...] 15-29 5 Kidney failure <15 (or dialysis) Procedures Date CPT Code Description Status 03/05/2018 24244 Inject/Drain Joint/Bursa Major W/O US Completed 05/08/2017 12685 Carpal Tunnel Release Completed 05/08/2017 19857 Carpal Tunnel Release Completed 12/28/2014 Colonoscopy Completed 03/05/2012 23040 EKG Tracing & Interpretation Completed 03/06/2011 86645 EKG Tracing & Interpretation Completed 01/29/2009 92716 EKG Tracing & Interpretation Completed 03/15/2007 98463 EKG Tracing & Interpretation Completed 11/15/2004 Colonoscopy Completed Encounters Type Date Location Provider CPT E/M Dx Office Visit 03/05/2018 [facility] Brandie Jacobo M.D. 39592 M25.561 2:00p Of [facility] M25.562 M25.462 M25.461 M17.0 Office Visit 01/14/2018 8:40a [facility] Mari Mcneal M.D. 04693 I10 - Miriam R74.0 Z68.32 Office Visit 03/30/2017 9:15a [facility] Frances Conrad, 81791 G56.03 Of [place] Guerra Office Visit 03/12/2017 11:00a [facility] Roly Juan Jeremy, 31910 M54.5 Of [place]co MAURICIO G90.09 G60.9 Office Visit 03/04/2017 9:30a [facility] Chelsea Carpenterclay, 70078 G56.03 Of [place]co GARRISON Office Visit 12/19/2016 1:00p [facility] Mari Mcneal 29442 I10 - Miriam Guerra R74.0 Office Visit 06/20/2016 11:20a [facility] Mari Mcneal 23922 Z00.00 - Miriam Guerra I10 R74.0 M54.5 M25.562 Z12.5 Z87.891 Office Visit 01/22/2016 10:00a [facility] [place] [address] N41.0 - [place] Office Visit 12/10/2015 8:40a [facility] Mari Mcneal 39170 I10 - Miriam Guerra Office Visit 11/27/2014 3:40p [facility] Arlyn Ware, N.PNasra 70047 386.11 - [place] 110.5 709.9 Office Visit 11/09/2014 10:00a [facility] Mari Mcneal 96106 401.1 - Miriam Guerra V03.82 Office Visit 09/20/2014 3:30p [facility] [place] [address] 724.5 [place] 719.41 553.29 553.1 Office Visit 07/11/2014 10:40a [facility] Mazin Shaw M.D. 72458 724.5 - [place] 728.89 724.8 Office Visit 05/10/2014 1:00p [facility] Mari Mcneal, 44139 V70.0 - [place] M.D. 401.1 272.4 V04.81 Office Visit 09/16/2013 11:00a [facility] Mari Mcneal, 93702 401.1 - [place] M.D. 790.4 Office Visit 06/14/2013 10:00a [facility] Mari Mcneal 69314 724.2 - [place] M.D. 790.4 Office Visit 03/15/2013 1:40p [facility] Mari Mcneal, 79403 V70.0 - [place] M.D. V81.2 401.1 790.4 285.9 300.00 Office Visit 10/18/2012 2:40p [facility] Mari Mcneal, 35364 300.00 - [place] M.D. 401.1 790.4 285.9 Office Visit 05/20/2012 3:40p [facility] Mari Mcneal 68861 300.00 - [place] M.D. 401.1 790.4 Office Visit 04/19/2012 4:00p [facility] Mari Mcneal, 95521 300.00 - [place] M.D. V04.81 Office Visit 03/09/2012 9:20a [facility] Mari Mcneal, 82459 V70.0 - [place] M.D. 780.52 790.4 401.1 272.4 V76.44 Office Visit 03/05/2012 9:40a [facility] Mari Mcneal, 22665 300.00 - [place] M.D. 786.50 790.4 Office Visit 10/14/2011 4:00p [facility] Arlyn Ware, N.P. 86872 388.30 - [place] Office Visit 09/08/2011 10:20a [facility] Mari Mcneal, 88002 401.1 - [place] M.D. 790.4 272.4 V76.44 Office Visit 08/05/2011 4:00p [facility] Mari Mcneal, 40881 724.5 - [place] M.D. 401.1 Office Visit 07/04/2011 11:40a DO Not Use Arlyn Varn, 17436 V58.32 [employer] N.P. Office Visit 03/06/2011 9:00a DO Not Use Mari Cotton, 90548 V70.0 [employer] M.D. 401.1 599.70 790.4 782.1 Office Visit 02/11/2011 1:00p DO Not Use Mari Cotton, 31556 724.2 [employer] M.D. 727.03 401.1 V76.44 Office Visit 08/29/2010 3:15p DO Not Use Mari Cotton, 30868 401.1 [employer] M.D. 729.5 Office Visit 07/01/2010 1:30p DO Not Use Mari Cotton, 27559 309.9 [employer] M.D. 729.5 Office Visit 06/03/2010 2:15p DO Not Use Mari Cotton, 77031 729.5 [employer] M.D. Office Visit 01/01/2010 8:30a DO Not Use Mari Cotton, 74791 401.1 [employer] M.D. 530.81 782.9 309.9 Office Visit 10/01/2009 9:30a DO Not Use RadSarai dye, 60665 530.81 [employer] M.D. 401.1 300.00 Office Visit 07/09/2009 3:00p DO Not Use RadSarai dye, 68293 692.9 [employer] M.D. Office Visit 06/05/2009 4:15p DO Not Use RadSarai dye, 30950 789.07 [employer] M.D. Office Visit 04/03/2009 1:15p DO Not Use Sarai Newton, 83071 V70.0 [employer] M.D. 401.1 V05.8 Office Visit 01/29/2009 2:00p DO Not Use Sarai Newton, 45544 272.0 [employer] M.D. 786.50 401.1 Office Visit 10/17/2008 10:00a DO Not Use Sarai Newton, 26274 272.0 [employer] M.D. 401.1 Office Visit 04/17/2008 9:15a DO Not Use RadSarai dye, 45081 272.0 [employer] M.D. 401.1 Office Visit 03/06/2008 8:45a DO Not Use RadSarai dye, 98913 V70.0 [employer] M.D. 401.1 Office Visit 12/01/2007 8:45a DO Not Use RadomsSarai schulte, 91203 272.0 [employer] M.D. 530.81 401.1 Office Visit 05/31/2007 8:30a DO Not Use RadSarai dye, 15581 272.0 [employer] M.D. 401.1 Office Visit 04/26/2007 9:15a DO Not Use RadSarai dye, 76684 272.0 [employer] M.D. 401.1 Office Visit 03/15/2007 10:45a DO Not Use RadSarai dye, 85341 272.0 [employer] M.D. 300.00 401.1 V70.0 V76.51 Plan of Care 03/05/2018 - Brandie Jacobo M.D.M25.561 Pain in right kneeM25.562 Pain in left kneeM25.462 Effusion, left kneeNew Medication:Meloxicam 15 mgM25.461 Effusion, right kneeM17.0 Bilateral primary osteoarthritis of kneeFollow up:Follow up: 4 weeks
[2018-04-19] MEDS ORDERED: NS 0.9% 1000 ML* 1,000 ML IV ONE (17:48)
--- NOTE | 2018-04-19 18:22 | RAD ---
EXAM: CT Head Without Intravenous Contrast CLINICAL HISTORY: 72 years old, male; Signs and symptoms; Dizziness; Additional info: Dizzness TECHNIQUE: Axial computed tomography images of the head/brain without intravenous contrast. All CT scans at this facility use at least one of these dose optimization techniques: automated exposure control; mA and/or kV adjustment per patient size (includes targeted exams where dose is matched to clinical indication); or iterative reconstruction. COMPARISON: No relevant prior studies available. FINDINGS: Brain: Nonspecific hypodensities of the periventricular and deep subcortical white matter, most likely secondary to chronic small vessel ischemic change. No intracranial hemorrhage or extra-axial fluid collection. No evidence of mass effect or midline shift. Howard-white matter differentiation is normal. Ventricles: Prominence of the ventricles and sulci, most likely attributed to parenchymal volume loss. Bones/joints: Unremarkable. No acute fracture. Soft tissues: Unremarkable. Sinuses: Unremarkable as visualized. No acute sinusitis. Mastoid air cells: Unremarkable as visualized. No mastoid effusion. IMPRESSION: No acute intracranial pathology.
--- NOTE | 2018-04-19 18:37 | ED ---
Dizziness - HPI Summary HPI Summary: Patient is a 72 y/o M w/ c/o dizziness the past few weeks and low platelet count noted by his PCP this morning. He notes episodes of heat exhaustion the past few weeks. Last night, he reports experiencing light-headedness and near syncope when walking from a car to a restaurant. He went to PCP this morning, was told platelet count was "critically low" and sent to ED. EDMOND, sore throat, dizziness, LOC are denied in the room. Patient did not experience LOC at any point. He denies abdominal pain, blood in urine/stool. No Hx of platelet issues are noted. HTN and HLD PMHx. No new medications reported. On triage, pain is rated 0/10, stopping and resting improved symptoms, nothing is noted to aggravate. Home medications and allergies reviewed. - History Of Current Complaint Chief Complaint: EDGeneral Stated Complaint: ABNORMAL LABS Time Seen by Provider: 04/19/18 17:41 Hx Obtained From: Patient Onset/Duration: Resolved - no Sx reported in the room Timing: Days - heat exhaustion episodes past two weeks; yesterday, light headed and near syncope Severity Currently: None - pain is denied Character: Lightheaded Aggravating Factor(s): Nothing Alleviating Factor(s): Rest Associated Signs And Symptoms: Positive: Other: - POSITIVE: light headed, near syncope and dizziness NEGATIVE: LOC, abdominal pain, blood in urine and stool - Allergies/Home Medications Allergies/Adverse Reactions: Allergies Allergy/AdvReac Type Severity Reaction Status Date / Time No Known Allergies Allergy Verified 04/19/18 16:12 Home Medications: Home Medications Aspirin EC TAB* [Ecotrin EC Low Dose 81 MG*] 81 mg PO DAILY 04/19/18 [History Confirmed 04/19/18] Escitalopram (NF) [Lexapro 10 mg (NF)] 10 mg PO DAILY 04/19/18 [History Confirmed 04/19/18] Fluticasone NASAL SPRAY 50MCG* [Flonase NASAL SPRAY 50MCG*] 1 spray BOTH NARES BID 04/19/18 [History Confirmed 04/19/18] Lisinopril TAB* [Prinivil TAB*] 40 mg PO DAILY 04/19/18 [History Confirmed 04/19] Multivitamins/Minerals TAB* [Theragran/minerals TAB*] 1 tab PO DAILY 04/19/18 [ History Confirmed 04/19/18] Pravastatin (NF) [Pravachol (NF)] 80 mg PO BEDTIME 04/19/18 [History Confirmed 04/19/18] Psyllium MARY* [Metamucil MARY*] 1 pkt PO DAILY 04/19/18 [History Confirmed ] amLODIPine TAB* [Norvasc 5 mg TAB*] 10 mg PO DAILY 04/19/18 [History Confirmed 04/19/18] PMH/Surg Hx/FS Hx/Imm Hx Cardiovascular History: Reports: Hx Hypertension - controlled with meds GI History: Reports: Hx Gastroesophageal Reflux Disease - on meds Musculoskeletal History: Reports: Hx Arthritis, Hx Tendonitis Sensory History: Reports: Hx Contacts or Glasses Denies: Hx Cataracts, Hx Glaucoma, Hx Hearing Aid Opthamlomology History: Reports: Hx Contacts or Glasses Denies: Hx Cataracts, Hx Glaucoma Neurological History: Reports: Other Neuro Impairments/Disorders - carpal tunnel - Cancer History Hx Chemotherapy: No - Surgical History Surgery Procedure, Year, and Place: left inguinal hernia repair as a child. torn meniscus repair left knee. right CTR Hx Anesthesia Reactions: No - Immunization History Immunizations Up to Date: Yes Infectious Disease History: No Infectious Disease History: Denies: Traveled Outside the [place] in Last 30 Days - Family History Known Family History: Positive: Cardiac Disease - mother had SC - Social History Alcohol Use: Daily Alcohol Amount: 2-4 drinks per day Substance Use Type: Reports: None Smoking Status (MU): Former Smoker Amount Used/How Often: smoked for 35 years 1ppd Review of Systems Positive: Other - heat exhaustion Negative: Abdominal Pain Positive: other - NEGATIVE: blood in stool . Negative: dysuria Neurological: Other - light headed, dizzy, near syncope All Other Systems Reviewed And Are Negative: Yes Physical Exam - Summary Physical Exam Summary: VITAL SIGNS: Reviewed. GENERAL: Patient is a well-developed and nourished male who is lying comfortable in the stretcher. Patient is not in any acute respiratory distress. HEAD AND FACE: No signs of trauma. No ecchymosis, hematomas or skull depressions. No sinus tenderness. EYES: PERRLA, EOMI x 2, No injected conjunctiva, no nystagmus. EARS: Hearing grossly intact. Ear canals and tympanic membranes are within normal limits. MOUTH: Oropharynx within normal limits. NECK: Supple, trachea is midline, no adenopathy, no JVD, no carotid bruit, no c- spine tenderness, neck with full ROM. CHEST: Symmetric, no tenderness at palpation LUNGS: Clear to auscultation bilaterally. No wheezing or crackles. CVS: Regular rate and rhythm, S1 and S2 present, no murmurs or gallops appreciated. ABDOMEN: Soft, non-tender. No signs of distention. No rebound no guarding, and no masses palpated. Bowel sounds are normal. EXTREMITIES: FROM in all major joints, no edema, no cyanosis or clubbing. NEURO: Alert and oriented x 3. No acute neurological deficits. Speech is normal and follows commands. SKIN: Dry and warm Triage Information Reviewed: Yes Vital Signs On Initial Exam: Initial Vitals Temp Pulse Resp BP Pulse Ox 97.5 F 88 19 148/62 95 04/19/18 16:11 04/19/18 16:11 04/19/18 16:11 04/19/18 16:11 04/19/18 16:11 Vital Signs Reviewed: Yes Diagnostics - Vital Signs Vital Signs Temp Pulse Resp BP Pulse Ox 04/19/18 16:11 97.5 F 88 19 148/62 95 - Laboratory Result Diagrams: 04/19/18 18:24 04/19/18 18:24 Lab Statement: Any lab studies that have been ordered have been reviewed, and results considered in the medical decision making process. - Radiology CXR Xray Interpretation: No Acute Changes Radiology Interpretation Completed By: ED Physician - no acute cardiopulmonary disease - CT CT brain CT Interpretation: No Acute Changes CT Interpretation Completed By: Radiologist - no acute intracranial pathology; this report was reviewed by ED physician. - EKG 1826 Cardiac Rate: NL - rate of 76 bpm EKG Rhythm: Sinus Rhythm EKG Interpretation: no ST elevation Re-Evaluation - Re-Evaluation First Eval Re-Evaluation Time: 18:52 Comment: Discussed admission of patient to [facility] [place]; he understands and is agreeable with plan. Dizzy Course/Dx - Course Assessment/Plan: Patient is a 72-year-old male who presents to the emergency department after she was sent from Dr. Mcneal s office with a chief complaint of having dizziness, near syncopal episodes. The patient also was told that he has thrombocytopenia. Patient reports that for the last couple days the patient is be having these episodes of dizziness and feeling like she was going to pass out. The patient denies any room spinning. Right now the patient has no complaints. Patient denies any sites of bleeding, denies any hematuria, hematemesis, rectal bleeding or epistaxis. Head CT impression: No acute intracranial pathology. Chest x-ray impression: No acute cardiopulmonary disease. Blood work shows a hemoglobin of 13.9 and hematocrit 39 and platelets of 21. The patient doesnt have any sites of bleeding at this point. The patient has thrombocytopenia and we need to rule out ITP. Therefore I discuss my physical exam, findings and test results with Dr. Vela who accepted the patient for admission. The patient continues to be hemodynamically stable, alert and oriented 3. He agrees for the admission. - Diagnoses Provider Diagnoses: Thrombocytopenia - Provider Notifications Discussed Care Of Patient With: Noemi Vela Time Discussed With Above Provider: 18:50 Instructed by Provider To: Other - Patient's case was discussed with Dr. Vela at 1850. Dr. Vela accepts patient for admission to [facility] [place]. Discharge - Sign-Out/Discharge Documenting (check all that apply): Patient Departure - admit - Discharge Plan Condition: Good Disposition: ADMITTED TO [facility] Referrals: Mari Mcneal MD [Primary Care Provider] - - Billing Disposition and Condition Condition: GOOD Disposition: Admitted to [facility] - Attestation Statements Document Initiated by Thaddeus: Yes Documenting Scribe: Gary Mortensen Provider For Whom Thaddeus is Documenting (Include Credential): Awais Wilson MD Scribe Attestation: I, Gary Mortensen, scribed for Awais Wilson MD on 04/19/18 at 1858. Scribe Documentation Reviewed: Yes Provider Attestation: The documentation as recorded by the Gary flynn accurately reflects the service I personally performed and the decisions made by me, Awais Wilson MD
[2018-04-19 18:38] LABS: ABS Basophils 0.1 10^3/ul (0-0.2); ABS Eosinophils 0.1 10^3/ul (0-0.6); ABS Lymphocytes 2.1 10^3/ul (1.0-4.8); ABS Monocytes 0.8 10^3/ul (0-0.8); ABS Neutrophils 3.5 10^3/ul (1.5-7.7); ABS Nucleated RBC 0 10^3/ul; Eosinophil % 1.8 % (0-6); Hematocrit 39 % (42-52); Hemoglobin 13.9 g/dl (14.0-18.0); Lymphocyte % 32.5 % (25-47); Mean Corpuscular HGB Conc 36 g/dl (31-36); Mean Corpuscular Hemoglobin 33 pg (27-31); Mean Corpuscular Volume 93 fL (80-94); Mean Platelet Volume 9.3 um3 (7.4-10.4); Nucleated Red Blood Cells % 0.1; Platelet Count 21 10^3/ul (150-450); Red Blood Count 4.21 10^6/ul (4.00-5.40); Red Cell Distribution Width 13 % (10.5-15); White Blood Count 6.5 10^3/ul (3.5-10.8)
[2018-04-19 18:47] LABS: INR 0.87 (0.77-1.02)
[2018-04-19 18:52] LABS: EGFR Non-African American 72.2 (>60)
--- NOTE | 2018-04-19 20:37 | CONSULT ---
Subjective Date of Service: 04/19/18 Interval History: This is a 72 year old male patient that presented to his PCP this morning with a complaint of dizziness yesterday. Patient states episode last 10 seconds, he did not lose consciousness and had no precipitating factors. Patient does report history of tinnitus and takes meclizine as needed. He also reports hx of HTN and GERD. His PCP performed labs in the office which showed a platelet level of 18 and he was referred to the ED for evaluation. Patient reports no bleeding, denies abdominal pain, hematuria, melena/bloody stools. Denies headache or visual disturbances. Denies any recent trauma. CT of the brain is negative for acute pathology or bleeding, repeat platelets is 21. Review of Systems - Measurements Intake and Output: Intake and Output Last 24 Hours 04/17/18 04/18/18 04/19/18 04/20/18 06:59 06:59 06:59 06:59 Intake Total 1000 Balance 1000 Weight 223 lb Intake: IV Fluids 1000 - Review of Systems Constitutional Symptoms: Negative: Weight Gain, Weight Loss, Weakness, Fatigue, Fever, Night Sweats, Unexplained Falls, Other Dermatology: Negative: Normal, Rash, Skin Lesions, Cancer, Skin Lumps, Other HEENT: Positive: Tinnitus Eyes: Negative: Normal, Change in Vision, Double Vision, Eye Pain, Glaucoma, Cataract, Contacts or Glasses, Other Thyroid: Negative: Normal, Goiter, Thyroid Nodule, Cold Intolerance, Heat Intolerance , Sweatiness, Tremor, Frequent Defecation, Constipation, Palpitations, Primary Hypothyroidism, Primary Hyperthyroidism, Weight Loss, Weight Gain, Change in Skin/Hair, Change in Menstruation, Radiation Exposure, Other Pulmonary: Negative: Normal, Cough, Sputum, Hemoptysis, Wheezing, Respiratory Distress, Shortness of Breath, COPD, Asthma, Exercise Intolerance, Home Oxygen, Other Cardiology: Negative: Normal, Chest Pain, Shortness of Breath, Palpitations, Swelling of Ankles, Peripheral Vascular Dis, Edema, Faintness, Syncope, Claudication, Proximal NocturnalDyspnea, Orthopnoea, Other Gastroenterology: Negative: Normal, Abdominal Pain, Nausea, Vomiting, Anorexia, Indigestion, Difficulty Swallowing, Heartburn, Constipation, Diarrhea, Blood in Stools, Change in Bowel Habits, Haematemesis, Melena, Other Genital - Urinary: Negative: Normal, Dysuria, Hematuria, Polyuria, Nocturia, Other Genitourinary - Male: Negative: Prostatism, Erectile Dysfunction, Family Hx of Prostate Cancer, Other Musculoskeletal: Negative: Joint Pain, Joint Stiffness, Arthritis, Osteoporosis, Low Back Pain , Sciatica, Joint Deformities, Kyphoscoliosis, Other Endocrinology: Negative: Normal, Thyroid Problems, Adrenal Problems, Gonadal Problems, Family Hx Endocrine Disorders, Obesity, Diabetes Mellitus, Hyperglycemia, Hx Hypoglycemia, Diabetic Foot Ulcers, Calluses, Hirsutism, Menstral Abnormalities , Polydipsia, Polyuria, Gonadal Problems, Gynecomastia, Pituitary disease, Other Hematologic/Lymphatic: Negative: Anemia, Easy Brusing, Hx Leukemia, Hx Lymphoma, Use of Anticoagulant, Use of Antiplatelet Drugs, Other Neurology: Negative: Normal, Headache, Migraines, Change in Vision, Diplopia, Dizziness , Change in Balancing, Change in Coordination, Change in Memory, Change in Speech, Change in Sphincter Function, Change in Walking, Numbness\Paresthesiae, Unexplained Weakness, Hx of Stroke\TIA, Hx of Seizures, Other Psychiatry: Negative: Normal, Depression, Anxiety, Depressed Mood, Adhedonia, Sexual Dysfunction, Weight Change, Guilt Feelings, Tearfulness, Unusual Fatigue, Unusual Anxiety, Suicidal Ideation, Hypomania, Eating Disorders, Other Allergic/Immunologic: Negative: Hx Anaphylaxis, Hx Angioedema, Hx Environmental, Hx Seasonal, Athsma, Hx HIV, Immunocompromise, Swollen Glands LymphNodes, Other Objective Vital Signs - 8 hr 04/19/18 04/19/18 04/19/18 16:11 19:15 19:16 Temperature 97.5 F Pulse Rate 88 77 77 Respiratory 19 17 18 Rate Blood Pressure 148/62 126/67 (mmHg) O2 Sat by Pulse 95 95 95 Oximetry Oxygen Devices in Use Now: None Appearance: Alert, well appearing, NAD Eyes: No Scleral Icterus, PERRLA Ears/Nose/Mouth/Throat: NL Teeth, Lips, Gums, Mucous Membranes Moist Neck: NL Appearance and Movements; NL JVP, Trachea Midline Respiratory: Symmetrical Chest Expansion and Respiratory Effort, Clear to Auscultation Cardiovascular: NL Sounds; No Murmurs; No JVD, RRR, No Edema Abdominal: NL Sounds; No Tenderness; No Distention, No Hepatosplenomegaly, - - obese/protuberant abdomen Extremities: No Edema, No Clubbing, Cyanosis Skin: No Rash or Ulcers Neurological: Alert and Oriented x 3, NL Sensation, NL Gait, NL Muscle Strength and Tone Nutrition: Taking PO's Result Diagrams: 04/19/18 18:24 04/19/18 19:08 Diagnostic Imaging: Patient Name: TERESA KAMARA Medical Record#: [id number] Ordering Physician: Awais Wilson MD [facility] [id number] : 1945 Age: 72 Sex: M Location: EMERGENCY DEPARTMENT Exam Date: 04/19/181748 ADM Status: REG ER Order Information: CT BRAIN WO Accession Number: [id number] CPT: 33178 EXAM: CT Head Without Intravenous Contrast CLINICAL HISTORY: 72 years old, male; Signs and symptoms; Dizziness; Additional info: Dizzness TECHNIQUE: Axial computed tomography images of the head/brain without intravenous contrast. All CT scans at this facility use at least one of these dose optimization techniques: automated exposure control; mA and/or kV adjustment per patient size (includes targeted exams where dose is matched to clinical indication); or iterative reconstruction. COMPARISON: No relevant prior studies available. FINDINGS: Brain: Nonspecific hypodensities of the periventricular and deep subcortical white matter, most likely secondary to chronic small vessel ischemic change. No intracranial hemorrhage or extra-axial fluid collection. No evidence of mass effect or midline shift. Howard-white matter differentiation is normal. Ventricles: Prominence of the ventricles and sulci, most likely attributed to parenchymal volume loss. Bones/joints: Unremarkable. No acute fracture. Soft tissues: Unremarkable. Sinuses: Unremarkable as visualized. No acute sinusitis. Mastoid air cells: Unremarkable as visualized. No mastoid effusion. IMPRESSION: No acute intracranial pathology. <Electronically signed by Magdy Leigh MD in OV> 04/19/181820 Dictated By: Magdy Leigh MD Dictated Date/Time: 04/19/181820 Transcribed Date/Time: Copy to: Assessment/Plan - Billing Impression: 1. Thrombocytopenia, etiology unclear - I called Dr. Hoyos of hematology, patient should call his office in the morning for an outpatient visit and workup, as patient is showing no active bleeding. 2. Dizziness - Resolved, CT head negative - May be related to his tinnitus/use of meclizine 3. Transaminitis - At his baseline, patient states his LFTs have been elevated in the past ( since 2012) and liver US showed what he thinks may be fatty liver disease 4. Hx of HTN - BP stable, no orthostasis 5. Hx of GERD - On PPI, asymptomatic Recommendation: Discharge to home with outpatient follow up tomorrow with hematology/oncology. Discussed with Dr. Bowens and Dr. Long.
--- NOTE | 2018-04-19 20:59 | ED ---
Progress - Progress Note Progress Note: Receiving sign out from Dr. Wilson. Hospitalist team saw the pt in a consult. Spoke with oncology (Dr. Murray and Dr. Hoyos). Pt is discharged and is to follow up with oncology. Final dx is thrombocytopenia. Re-Evaluation - Re-Evaluation First Eval Re-Evaluation Time: 18:52 Comment: Discussed admission of patient to [facility] [place]; he understands and is agreeable with plan. Course/Dx - Diagnoses Provider Diagnoses: Thrombocytopenia Discharge - Sign-Out/Discharge Documenting (check all that apply): Patient Departure - Discharge, Receiving Sign-Out Receiving patient FROM: Awais Wilson - Discharge Plan Condition: Stable Disposition: HOME Patient Education Materials: Thrombocytopenia (ED) Referrals: Mari Mcneal MD [Primary Care Provider] - Cece Murray MD [Medical Doctor] - Additional Instructions: Call first thing in the morning to schedule follow-up with hematology/oncology. Return with any bleeding, dark tools, weakness, worse or other concerns. - Attestation Statements Document Initiated by Scribe: Yes Documenting Scribe: Lu Rodriguez Provider For Whom Scribe is Documenting (Include Credential): Colt Long MD Scribe Attestation: Lu Handy, scribed for Colt Long MD on 04/20/18 at 0635.
[2018-04-19 21:02] VITALS: BP 145/71
--- NOTE | 2018-04-20 07:42 | RAD ---
INDICATION: Dizziness. COMPARISON: Comparison is made with a prior chest x-ray study from April 03, 2012. TECHNIQUE: Dual-energy PA and lateral views of the chest were obtained. FINDINGS: The heart is within normal limits in size. Mediastinal and hilar contours appear within normal limits. The lungs are clear. No pleural effusion is present. IMPRESSION: NO EVIDENCE FOR ACTIVE CARDIOPULMONARY DISEASE. R1
== END 2018-04-19 21:02 | disposition home or self-care (01) ==
LOC: ED 16:08
DX: D69.6 Thrombocytopenia, unspecified (principal); R42 Dizziness and giddiness; R55 Syncope and collapse; I10 Essential (primary) hypertension; Z87.891 Personal history of nicotine dependence; Z79.899 Other long term (current) drug therapy
CPT/HCPCS: 36415; 70450; 71046; 80053; 80320; 82140; 82550; 83605; 83735; 83880; 84443; 84484; 85025; 85610; 85730; 93005; 96360; 99283; G0480

== ENCOUNTER 2018-10-11 12:46 | Inpatient (IN) | payer MEDICARE, BC ==
[2018-10-11] MEDS ORDERED: Fluticasone NASAL SPRAY 50MCG* 16 gm SPRAY BTL BOTH NARES PRN (14:07)
[2018-10-11] MEDS ORDERED: oxyCODONE/Acetamin 5/325 MG* TAB PO PRN (14:20)
[2018-10-11] MEDS: [UNRECOGNIZED DRUG - OTHER] IV SCH (16:01)
[2018-10-11] MEDS: IMMUNE GLOBULN IV SCH (16:01)
[2018-10-11] MEDS ORDERED: Iohexol 300* (CONTRAST) 10 ML SDV IV ONE (18:15)
[2018-10-11] MEDS: Atorvastatin* 20 MG TAB PO SCH (20:19)
[2018-10-12 06:52] LABS: ABS Basophils 0 10^3/ul (0-0.2); ABS Eosinophils 0 10^3/ul (0-0.6); ABS Lymphocytes 0.6 10^3/ul (1.0-4.8); ABS Monocytes 0.6 10^3/ul (0-0.8); ABS Neutrophils 6.6 10^3/ul (1.5-7.7); ABS Nucleated RBC 0 10^3/ul; Eosinophil % 0 %; Hematocrit 41 % (42-52); Hemoglobin 13.8 g/dl (14.0-18.0); Lymphocyte % 7.8 %; Mean Corpuscular HGB Conc 34 g/dl (31-36); Mean Corpuscular Hemoglobin 32 pg (27-31); Mean Corpuscular Volume 94 fL (80-94); Mean Platelet Volume 10.6 fL (7.4-10.4); Nucleated Red Blood Cells % 0; Platelet Count 34 10^3/ul (150-450); Red Blood Count 4.33 10^6/ul (4.00-5.40); Red Cell Distribution Width 13 % (10.5-15); White Blood Count 7.9 10^3/ul (3.5-10.8)
[2018-10-12 07:06] LABS: Albumin 3.8 g/dL (3.2-5.2); Albumin/Globulin Ratio 0.8 (1-3); BUN/Creatinine Ratio 15.7 (8-20); Calcium 9.5 mg/dL (8.6-10.3); EGFR African American 110.8 (>60); EGFR Non-African American 91.6 (>60); Globulin 4.9 g/dL (2-4); Potassium 4.5 mmol/L (3.5-5.0); Total Bilirubin 0.4 mg/dL (0.2-1.0); Total Protein 8.7 g/dL (6.4-8.9)
[2018-10-12] MEDS ORDERED: Dexamethasone IV* 4 MG/ML 1 ML (4 MG) ONE (08:11)
[2018-10-12] MEDS: Lisinopril TAB* 10 MG PO SCH (08:21)
[2018-10-12] MEDS: amLODIPine TAB* 5 MG PO SCH (08:21)
[2018-10-12] MEDS: Cyanocobalamin TAB* 500 MCG PO SCH (08:23)
[2018-10-12] MEDS: Pantoprazole TAB * 40 MG TAB PO SCH (08:23)
[2018-10-12] MEDS: Dexamethasone IV* 8 MG in NS 0.9% 50 ML* 50 ML IVPB SCH (08:24)
[2018-10-12] MEDS: Escitalopram * 10 MG TAB PO SCH (09:52)
--- NOTE | 2018-10-12 09:56 | PN ---
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 No bleeding episodes overnight. Reports arthralgias have improved. ] Objective: [ Laboratory Results - last 24 hr 10/12/18 10/12/18 06:34 06:34 WBC 7.9 RBC 4.33 Hgb 13.8 L Hct 41 L MCV 94 MCH 32 H MCHC 34 RDW 13 Plt Count 34 L D MPV 10.6 H Neut % (Auto) 84.4 Lymph % (Auto) 7.8 [place] % (Auto) 7.5 Eos % (Auto) 0 Baso % (Auto) 0.3 Absolute Neuts (auto) 6.6 Absolute Lymphs (auto) 0.6 L Absolute Monos (auto) 0.6 Absolute Eos (auto) 0 Absolute Basos (auto) 0 Absolute Nucleated RBC 0 Nucleated RBC % 0 Sodium 136 Potassium 4.5 Chloride 104 Carbon Dioxide 25 Anion Gap 7 BUN 13 Creatinine 0.83 Est GFR ( Amer) 110.8 Est GFR (Non-Af Amer) 91.6 BUN/Creatinine Ratio 15.7 Glucose 151 H Calcium 9.5 Total Bilirubin 0.40 AST 31 ALT 43 Alkaline Phosphatase 70 Total Protein 8.7 Albumin 3.8 Globulin 4.9 H D Albumin/Globulin Ratio 0.8 L Amlodipine Besylate (Norvasc Tab*) 10 mg PO DAILY [facility] Last Admin: 10/12/18 08:21 Dose: 10 mg Atorvastatin Calcium (Lipitor*) 20 mg PO BEDTIME [facility]; Protocol Last Admin: 10/11/18 20:19 Dose: 20 mg Cyanocobalamin (Vitamin B12 Tab*) 1,000 mcg PO DAILY [facility] Last Admin: 10/12/18 08:23 Dose: 1,000 mcg Escitalopram Oxalate (Lexapro *) 10 mg PO DAILY [facility] Fluticasone Propionate (Flonase Nasal [place] 50mcg*) 1 spray BOTH NARES BID PRN PRN Reason: CONGESTION Dexamethasone Sodium Phosphate (8 mg/ Sodium Chloride) 52 mls @ 208 mls/hr IVPB DAILY [facility] Last Admin: 10/12/18 08:24 Dose: 208 mls/hr Immune Globulin 80 gm/ Immune (Globulin 30 gm/ IV Solution) 1,100 mls @ 0 mls/ hr IV DAILY@1530 [facility]; Protocol Stop: 10/12/18 15:31 Last Admin: 10/11/18 16:01 Dose: 32.7 mls/hr Lisinopril (Prinivil Tab*) 40 mg PO DAILY [facility] Last Admin: 10/12/18 08:21 Dose: 40 mg Oxycodone/Acetaminophen (Percocet 5/325 Tab*) 1 tab PO Q6H PRN PRN Reason: PAIN Pantoprazole Sodium (Protonix Tab*) 40 mg PO DAILY [facility] Last Admin: 10/12/18 08:23 Dose: 40 mg Vital Signs: Temp Pulse Resp BP Pulse Ox 98.0 F 96 18 138/72 95 10/12/18 07:40 10/12/18 07:40 10/12/18 08:00 10/12/18 07:40 10/12/18 07:40 Exam: Gen: Well appearing 72 yo male in NAD HEENT: MMM CV: RRR, no m/r/g Resp: CTA, no w/c/r Abd: soft, nonTTP, no HSM Ext: no edema] Assessment: [72 yo male with refractory ITP admitted platelet count of 7K, but no signs of major bleeding. Now s/p 1 of 2 planned doses of IVIG and 1 of 4 planned doses of dexamethasone with platelet improvement. At admission he was complaining of severe arthralgias that have now improved as well] Plan: [1. ITP - relapsed/refractory - complete 2nd dose of IVIG - complete total of 4 doses of dexamethasone 40 mg IV daily - plan to start Promacta 50 mg po daily, auth pending 2. Diffuse arthralgias - improved with steroids, no obvious pathology on CT - no clear etiology, but likely autoimmune mediated - CRP 39, ESR 30, RF neg, ALESIA pend - recommend rheumatology evaluation as an outpatient 3. DVT prophylaxis - none d/t severe thrombocytopenia Dispo: anticipate dc tomorrow and complete final dexamethasone dose as an outpatient]
[2018-10-12] MEDS: IMMUNE GLOBULN IV SCH (14:50)
[2018-10-12] MEDS: [UNRECOGNIZED DRUG - OTHER] IV SCH (14:50)
[2018-10-12] MEDS: Atorvastatin* 20 MG TAB PO SCH (20:15)
[2018-10-13 05:57] LABS: ABS Basophils 0 10^3/ul (0-0.2); ABS Eosinophils 0 10^3/ul (0-0.6); ABS Lymphocytes 0.7 10^3/ul (1.0-4.8); ABS Monocytes 0.8 10^3/ul (0-0.8); ABS Neutrophils 6.5 10^3/ul (1.5-7.7); ABS Nucleated RBC 0 10^3/ul; Eosinophil % 0 %; Hematocrit 39 % (42-52); Hemoglobin 12.9 g/dl (14.0-18.0); Lymphocyte % 9.1 %; Mean Corpuscular HGB Conc 33 g/dl (31-36); Mean Corpuscular Hemoglobin 32 pg (27-31); Mean Corpuscular Volume 97 fL (80-94); Nucleated Red Blood Cells % 0; Platelet Count 78 10^3/ul (150-450); Red Blood Count 4.02 10^6/ul (4.00-5.40); Red Cell Distribution Width 13 % (10.5-15); White Blood Count 8.1 10^3/ul (3.5-10.8)
[2018-10-13 06:11] LABS: Albumin 3.2 g/dL (3.2-5.2); Albumin/Globulin Ratio 0.5 (1-3); BUN/Creatinine Ratio 23.1 (8-20); Calcium 8.6 mg/dL (8.6-10.3); EGFR African American 99.7 (>60); EGFR Non-African American 82.4 (>60); Globulin 6.1 g/dL (2-4); Potassium 4.1 mmol/L (3.5-5.0); Total Bilirubin 0.3 mg/dL (0.2-1.0); Total Protein 9.3 g/dL (6.4-8.9)
[2018-10-13 08:01] VITALS: BP 116/58
--- NOTE | 2018-10-13 10:08 | DS ---
- Discharge Summary ADMIT DATE: 10/11/2018 DISCHARGE DATE: 10/13/2018 DISCHARGE DIAGNOSIS: 1. ITP sp IVIG and IV steroids DISCHARGE MEDICATIONS: Home Medications Medication Instructions Recorded Confirmed Type Esomeprazole(NF) [Nexium(NF)] 40 mg PO DAILY 05/04/17 10/11/18 History Escitalopram * [Lexapro 10 mg (NF)] 10 mg PO DAILY 04/19/18 10/11/18 History Fluticasone NASAL SPRAY 50MCG* 1 spray BOTH NARES BID PRN 04/19/18 10/11/18 History [Flonase NASAL SPRAY 50MCG*] Lisinopril TAB* [Prinivil TAB 10 40 mg PO DAILY 04/19/18 10/11/18 History MG*] Pravastatin (NF) [Pravachol (NF)] 80 mg PO BEDTIME 04/19/18 10/11/18 History Psyllium MARY* [Metamucil MARY*] 1 pkt PO DAILY PRN 04/19/18 10/11/18 History amLODIPine TAB* [Norvasc 5 mg TAB*] 10 mg PO DAILY 04/19/18 10/11/18 History Cyanocobalamin TAB* [Vitamin B12 1,000 mcg PO DAILY 10/11/18 10/11/18 History TAB*] DISCHARGE FOLLOW UP: 1. Dr. Murray's office for IV dexamethasone 10/14/2018 at 10 am 2. OBINNA Bermudez 10/21/2018 labs, OV 2:20 pm HOSPITAL COURSE: see full admit H+P for details. Briefly 72 yo M w ITP recently relapsed despite rituximab presenting with platelet count of 7 and diffuse arthralgias, and profound fatigue. Admitted for IVIG given over 2 days (2g/kg) and plan for pulse dexamethasone (40mg IV x 4 days). Platelet count up to [address] C/A/ P to rule out concomitant malignancy was negative. Diffuse arthralgias markedly better with IVIG and steroids, making me question if there is an autoimmune arthropathy. ESR and crp were elevated on admission. Plan for discharge after IV dex today with 4th dose tomorrow in my office, and then to start promacta 50 mg daily which we have just started working on getting authorized. I will also make an urgent referral to rheumatology. >30 mins spent >50% in face to face counseling
[2018-10-13] MEDS: Cyanocobalamin TAB* 500 MCG PO SCH (10:11)
[2018-10-13] MEDS: Escitalopram * 10 MG TAB PO SCH (10:11)
[2018-10-13] MEDS: amLODIPine TAB* 5 MG PO SCH (10:11)
[2018-10-13] MEDS: Dexamethasone IV* 8 MG in NS 0.9% 50 ML* 50 ML IVPB SCH (10:12)
[2018-10-13] MEDS: Lisinopril TAB* 10 MG PO SCH (10:12)
[2018-10-13] MEDS: Pantoprazole TAB * 40 MG TAB PO SCH (10:12)
== END 2018-10-13 11:00 | disposition home or self-care (01) | DRG 813 ==
LOC: MED 13:57
PROVIDERS: ADMIT Internal Medicine Hematology & Oncology; ATTEND Internal Medicine Hematology & Oncology
PROC: 3E033WL Introduction of Immunosuppressive into Peripheral Vein, Percutaneous (ICD-10-PCS; principal; 2018-10-11)
PROC: 30233S1 Transfusion of Nonautologous Globulin into Peripheral Vein, Percutaneous Approach (ICD-10-PCS; 2018-10-11)
DX: D69.3 Immune thrombocytopenic purpura (principal); K21.9 Gastro-esophageal reflux disease without esophagitis; M19.90 Unspecified osteoarthritis, unspecified site; I10 Essential (primary) hypertension; M25.50 Pain in unspecified joint; Z87.891 Personal history of nicotine dependence; Z72.89 Other problems related to lifestyle
CPT/HCPCS: 36415; 71260; 74177; 80053; 85025; 86038; 90283; 99223; 99232; A9270-GY; J1100; J1459; Q9967

== ENCOUNTER 2020-09-28 07:30 | Observation (INO) ==
[~2020-09-28 07:30] MED LIST changes: -Buffered Lidocaine 0.9% SYRIN* 5 ML/SYR SYRINGE INTRADERM ONE; +Buffered Lidocaine 1% SYRIN 1 ml INTRADERM ONE; +Famotidine IV 10 MG/ML 2 ml VIAL (20 mg) IV ONE; +Lactated Ringers 1000 ml BAG 1,000 ML IV SCH
[2020-09-28] MEDS ORDERED: Midazolam 5 mg/5 ml VIAL 1 mg/ml 5 ml VIAL (5 mg) ONE (08:25)
[2020-09-28] MEDS ORDERED: fentaNYL 100 mcg/2 ml 50 MCG/ML VIAL ONE ×3 (08:25→12:14)
[2020-09-28 09:05] LABS: Mean Platelet Volume 8.3 fL (7.4-10.4); Platelet Count 240 10^3/uL (150-450)
[2020-09-28] MEDS ORDERED: ROPIVACAINE 5 MG/ML 30 ML BTL (0.5%) ONE (09:37)
[2020-09-28] MEDS ORDERED: Lidocaine 1% MPF 5 ML VIAL ONE (09:37)
[2020-09-28] MEDS ORDERED: Rocuronium 50 mg VIAL 10 mg/ml 5 ml VIAL (50 mg) ONE (10:48)
[2020-09-28] MEDS ORDERED: Midazolam 2 mg/2 ml VIAL 1 mg/ml 2 ml VIAL (2 mg) ONE (11:05)
[2020-09-28] MEDS ORDERED: Ketamine HCL 50 mg/ml 10 ml VIAL (500 MG) ONE (11:06)
[2020-09-28] MEDS ORDERED: Glycopyrrolate IV 0.2 MG/ML 1 ML VIAL ONE (11:08)
[2020-09-28] MEDS ORDERED: diPHENhydraMINE 25 mg TAB PO PRN (11:55)
[2020-09-28] MEDS ORDERED: Lactulose 30 ml UDC PO PRN (11:55)
[2020-09-28] MEDS ORDERED: diPHENhydraMINE IV 50 MG/ML 1 ml VIAL (BENADRYL) IV PRN (11:55)
[2020-09-28] MEDS ORDERED: Magnesium Hydroxide LIQ 30 ML UDC PO PRN (11:55)
[2020-09-28] MEDS ORDERED: Morphine 2 MG/ML SYRINGE IV PRN (11:55)
[2020-09-28] MEDS ORDERED: Prochlorperazine 5 mg/ml 2 ml VIAL (10 mg) IV PRN (12:03)
[2020-09-28] MEDS ORDERED: Phenylephrine 40 mcg/mL 10mL (400mcg) SYRINGE ONE (12:09)
[2020-09-28] MEDS ORDERED: Acetaminophen IV 1 GM/100ML 100 ML ONE (12:09)
[2020-09-28] MEDS ORDERED: Propofol 10 MG/ML 20 ML BTL ONE (12:09)
[2020-09-28] MEDS ORDERED: DiMENhydriNATE IV 50 mg/ml 1 ml VIAL ONE (12:09)
[2020-09-28] MEDS ORDERED: Ondansetron 4 mg VIAL 2 MG/ML 2 ml VIAL ONE (12:09)
[2020-09-28] MEDS ORDERED: Succinylcholine 200 mg VIAL 20 mg/ml 10 ml VIAL (200 mg) ONE (12:09)
[2020-09-28] MEDS ORDERED: Dexamethasone IV 4 MG/ML VIAL 1 ml VIAL ONE (12:09)
[2020-09-28] MEDS ORDERED: HYDROmorphone 1 MG/1 ML SYRINGE ONE (13:25)
[2020-09-28] MEDS ORDERED: Levalbuterol 0.63MG/3ML NEB UNIT OF USE INH PRN (14:16)
[2020-09-28] MEDS ORDERED: Naloxone 0.4 mg VIAL 0.4 mg/ml 1 ml VIAL IV PRN (14:16)
[2020-09-28] MEDS: HYDROmorphone 1 MG/1 ML SYRINGE IV PRN ×2 (14:21→14:37)
[2020-09-28] MEDS: Lactated Ringers 1000 ml BAG 1,000 ML IV SCH (15:42)
[2020-09-28] MEDS: Magnesium Hydroxide LIQ 30 ML UDC PO SCH (20:04)
[2020-09-28] MEDS: ceFAZolin 1 GM ADVAN 1 GM in NS 0.9% 50 ML 50 ML IVPB SCH (20:04)
[2020-09-29] MEDS: Lactated Ringers 1000 ml BAG 1,000 ML IV SCH (02:34)
[2020-09-29] MEDS: ceFAZolin 1 GM ADVAN 1 GM in NS 0.9% 50 ML 50 ML IVPB SCH ×2 (03:16→10:30)
[2020-09-29 05:55] LABS: Hematocrit 30 % (42-52); Hemoglobin 9.9 g/dL (14.0-18.0); Mean Platelet Volume 7.6 fL (7.4-10.4); Platelet Count 245 10^3/uL (150-450)
[2020-09-29 05:59] LABS: BUN/Creatinine Ratio 20.7 (8-20); Calcium 7.8 mg/dL (8.6-10.3); EGFR African American 97.9 (>60); EGFR Non-African American 80.9 (>60); Potassium 4.3 mmol/L (3.5-5.0)
[2020-09-29] MEDS ORDERED: ELTROMBOPAG 50 MG PO SCH (09:00)
[2020-09-29] MEDS ORDERED: Vitamin THERAPEUTIC TAB PO SCH (09:00)
[2020-09-29] MEDS: Magnesium Hydroxide LIQ 30 ML UDC PO SCH (09:15)
[2020-09-29 11:42] VITALS: BP 97/50
== END 2020-09-29 12:46 | disposition home or self-care (01) ==
LOC: INTOOBSV 08:12 → AA 08:12 → SSU 15:23
PROVIDERS: ADMIT Orthopaedic Surgery Adult Reconstructive Orthopaedic Surgery; ATTEND Orthopaedic Surgery Adult Reconstructive Orthopaedic Surgery